=== PATIENT | female | born 1985 | race Caucasian/White ===

== ENCOUNTER → 2021-05-17 | Outpatient (CLI) | payer OTHER ==
[~2021-05-17] MED LIST: GASTROGRAFIN SOLUTION 30ML (Q9963) As Ordered ONE; ISOVUE-370 76% 100ML VIAL As Ordered ONE
== END ==
LOC: M RAD 12:46
PROVIDERS: ATTEND Student in an Organized Health Care Education/Training Program
DX: C43.4 Malignant melanoma of scalp and neck (principal)

== ENCOUNTER → 2021-07-03 | Outpatient (CLI) | payer BC | LOC: M PLARAD 12:52 | PROVIDERS: ATTEND Specialist | DX: C43.4 Malignant melanoma of scalp and neck (principal) | CPT/HCPCS: 78815; A9552 ==

== ENCOUNTER 2021-07-11 16:59 | Inpatient (IN) | payer BC ==
[~2021-07-11] VITALS: Ht 154.9 cm; Wt 50.0 kg
[2021-07-11 17:42] LABS: HEMATOCRIT 36.8 % (36.0-47.0); HEMOGLOBIN 12.4 g/dl (12.0-15.5); MEAN CORPUSCULAR HEMOGLOBIN 30.2 pg (27.0-33.0); MEAN CORPUSCULAR HGB CONC 33.7 g/dl (32.0-36.5); MEAN CORPUSCULAR VOLUME 89.5 fl (80.0-96.0); PLATELET COUNT, AUTOMATED 403 10^3/uL (150-450); RED BLOOD COUNT 4.11 10^6/uL (4.00-5.40); WHITE BLOOD COUNT 9.2 10^3/uL (4.0-10.0)
[2021-07-11 17:58] LABS: AMPHETAMINES LEVEL URINE NEGATIVE (NEGATIVE); BARBITURATES URINE NEGATIVE (NEGATIVE); BENZODIAZEPINES URINE NEGATIVE (NEGATIVE); CANNABINOIDS URINE NEGATIVE (NEGATIVE); COCAINE METABOLITE URINE NEGATIVE (NEGATIVE); METHADONE URINE NEGATIVE (NEGATIVE); OPIATES URINE NEGATIVE (NEGATIVE); PHENCYCLIDINE URINE NEGATIVE (NEGATIVE)
[2021-07-11 18:29] LABS: RSV AMPLIFICATION NEGATIVE (NEGATIVE)
[2021-07-11 18:31] LABS: HCG, SERUM QUALITATIVE NEGATIVE (NEGATIVE)
[2021-07-11 18:35] LABS: ACETAMINOPHEN LEVEL < 2.0 UG/ML (10.0-30.0); ALBUMIN 4.2 GM/DL (3.2-5.2); ALT/SGPT 21 U/L (12-78); BILIRUBIN,DIRECT < 0.1 MG/DL (0.0-0.2); BILIRUBIN,TOTAL 0.3 MG/DL (0.2-1.0); BLOOD UREA NITROGEN 6 MG/DL (7-18); CALCIUM LEVEL 9.6 MG/DL (8.5-10.1); CARBON DIOXIDE LEVEL 27 MEQ/L (21-32); CHLORIDE LEVEL 107 MEQ/L (98-107); CREATININE FOR GFR 0.93 MG/DL (0.55-1.30); ETHYL ALCOHOL (ETHANOL) < 0.003 % (0.000-0.010); GLOMERULAR FILTRATION RATE > 60.0 (>60); GLUCOSE, FASTING 102 MG/DL (70-100); POTASSIUM SERUM 3.9 MEQ/L (3.5-5.1); SALICYLATE LEVEL < 1.7 MG/DL (5.0-30.0); SODIUM LEVEL 139 MEQ/L (136-145); THYROID STIMULATING HORMONE 0.831 uIU/ML (0.358-3.740); TOTAL PROTEIN 7.9 GM/DL (6.4-8.2)
[2021-07-11] MEDS ORDERED: HOME MED LIST COMPLETE! XX SCH (23:05)
[2021-07-12] MEDS ORDERED: ACETAMINOPHEN 325 MG/10.15 ML UDC PO ONE (17:55)
[2021-07-13] MEDS ORDERED: ACETAMINOPHEN 325 MG/10.15 ML UDC PO ONE (12:20)
[2021-07-13] MEDS ORDERED: MAALOX 30 ML SUSP *UDC PO PRN (14:10)
[2021-07-13] MEDS ORDERED: traZODone 50 MG TAB PO PRN (14:10)
[2021-07-13] MEDS ORDERED: MOM 30ML SUSPENSION UDC PO PRN (14:10)
[2021-07-13] MEDS: ACETAMINOPHEN TAB 650MG DOSE (2X325MG) PO PRN (19:50)
[2021-07-14 07:04] VITALS: BP 101/57
[2021-07-14] MEDS: ESCITALOPRAM OXALATE 5MG TABLET (LEXAPRO) PO SCH (11:36)
[2021-07-14] MEDS: ACETAMINOPHEN TAB 650MG DOSE (2X325MG) PO PRN (11:36)
[2021-07-14] MEDS: LIDOCAINE 5% OINT 30GM TUBE TOP PRN (14:30)
[2021-07-14] MEDS ORDERED: ONDANSETRON 4 MG ORAL DISINTEGRATING TAB PO PRN (14:45)
[2021-07-14 18:47] VITALS: BP 126/82
[2021-07-14] MEDS: DOXYCYCLINE HYCLATE 100MG TABLET PO SCH (20:35)
[2021-07-15 06:42] VITALS: BP 102/56
[2021-07-15] MEDS: ACETAMINOPHEN TAB 650MG DOSE (2X325MG) PO PRN ×2 (08:16→21:30)
[2021-07-15] MEDS: ESCITALOPRAM OXALATE 5MG TABLET (LEXAPRO) PO SCH (08:16)
[2021-07-15] MEDS: DOXYCYCLINE HYCLATE 100MG TABLET PO SCH ×2 (08:16→20:38)
[2021-07-15] MEDS: LIDOCAINE 5% OINT 30GM TUBE TOP PRN (11:37)
[2021-07-15 18:48] VITALS: BP 130/82
[2021-07-16 06:34] VITALS: BP 109/53
[2021-07-16] MEDS: ESCITALOPRAM OXALATE 10 MG TAB (LEXAPRO) PO SCH (08:55)
[2021-07-16] MEDS: DOXYCYCLINE HYCLATE 100MG TABLET PO SCH ×2 (08:55→20:12)
[2021-07-16] MEDS: LIDOCAINE 5% OINT 30GM TUBE TOP PRN (12:07)
[2021-07-16 16:22] VITALS: BP 119/74
[2021-07-17 06:35] VITALS: BP 117/59
[2021-07-17] MEDS: ESCITALOPRAM OXALATE 10 MG TAB (LEXAPRO) PO SCH (08:15)
[2021-07-17] MEDS: DOXYCYCLINE HYCLATE 100MG TABLET PO SCH ×2 (08:15→19:37)
[2021-07-17] MEDS: ACETAMINOPHEN TAB 650MG DOSE (2X325MG) PO PRN ×2 (09:38→20:20)
[2021-07-17] MEDS: LIDOCAINE 5% OINT 30GM TUBE TOP PRN (14:13)
[2021-07-17 16:28] VITALS: BP 113/75
[2021-07-18 06:20] VITALS: BP 120/69
[2021-07-18] MEDS: ACETAMINOPHEN TAB 650MG DOSE (2X325MG) PO PRN (07:43)
[2021-07-18] MEDS: DOXYCYCLINE HYCLATE 100MG TABLET PO SCH (08:28)
[2021-07-18] MEDS: ESCITALOPRAM OXALATE 10 MG TAB (LEXAPRO) PO SCH (08:28)
[2021-07-18] MEDS ORDERED: LIDO5OIN19 TOP (09:37)
[2021-07-18] MEDS ORDERED: DOXY100T PO (09:37)
[2021-07-18] MEDS ORDERED: LEXA1TAB PO (09:37)
== END 2021-07-18 16:26 | disposition home or self-care (01) | DRG 755 ==
LOC: M ED 16:59 → M PSY 07-13 14:09 → M ED 07-13 14:42 → M PSY 07-13 15:23
PROVIDERS: ADMIT Student in an Organized Health Care Education/Training Program; ATTEND Psychiatry & Neurology Psychiatry
DX: F43.25 Adjustment disorder with mixed disturbance of emotions and conduct (principal); Z63.5 Disruption of family by separation and divorce; R45.851 Suicidal ideations; Z85.828 Personal history of other malignant neoplasm of skin; Z87.891 Personal history of nicotine dependence; M54.2 Cervicalgia; Z79.899 Other long term (current) drug therapy

== ENCOUNTER → 2022-06-06 | Outpatient (REF) | payer BC ==
[~2022-06-06] MED LIST changes: +DOXY100T PO; -GASTROGRAFIN SOLUTION 30ML (Q9963) As Ordered ONE; -ISOVUE-370 76% 100ML VIAL As Ordered ONE; +LEVE500T5; +LEXA1TAB PO; +LIDO5OIN19 TOP; +ONDA-83 PO; +PROC10TA5 PO
== END ==
LOC: M SFHCDERM 17:10
PROVIDERS: ATTEND Physician Assistant
DX: C43.59 Malignant melanoma of other part of trunk (principal)

== ENCOUNTER 2022-08-15 09:54 | Emergency (ER) | payer BC ==
[~2022-08-15] VITALS: Ht 154.9 cm; Wt 46.2 kg
[2022-08-15] MEDS ORDERED: LEXA1TAB (10:35)
[2022-08-15] MEDS ORDERED: ARIP1TAB4 (10:35)
[2022-08-15 11:01] LABS: BASO # 0.1 10^3/uL (0.0-0.2); BASO % 0.6 % (0.0-1.0); EOS # 0.1 10^3/uL (0.0-0.5); EOS % 1.4 % (0.0-3.0); HEMATOCRIT 32.2 % (36.0-47.0); HEMOGLOBIN 9.8 g/dl (12.0-15.5); LYMPH # 1.2 10^3/uL (1.5-5.0); LYMPH % 13.8 % (24.0-44.0); MEAN CORPUSCULAR HGB CONC 30.4 g/dl (32.0-36.5); MEAN CORPUSCULAR VOLUME 85.4 fl (80.0-96.0); MONO # 0.7 10^3/uL (0.0-0.8); NEUTROPHILS # 6.8 10^3/uL (1.5-8.5); PLATELET COUNT, AUTOMATED 406 10^3/uL (150-450); RED BLOOD COUNT 3.77 10^6/uL (4.00-5.40)
[2022-08-15] MEDS ORDERED: ISOVUE-370 76% 100ML VIAL As Ordered ONE (11:07)
[2022-08-15 11:22] LABS: LIPASE 46 U/L (12-53)
[2022-08-15 11:24] LABS: ALBUMIN 2.6 G/DL (3.2-5.2); ALKALINE PHOSPHATASE 137 U/L (46-116); ALT/SGPT 62 U/L (7.0-40); AST/SGOT 99 U/L (<34); BILIRUBIN,DIRECT 0.1 MG/DL (<0.4); BILIRUBIN,TOTAL 0.4 MG/DL (0.3-1.2); BLOOD UREA NITROGEN 8 MG/DL (9-23); CALCIUM LEVEL 8.8 MG/DL (8.5-10.1); CARBON DIOXIDE LEVEL 27 MMOL/L (20-31); CHLORIDE LEVEL 103 MMOL/L (98-107); CREATININE FOR GFR 0.75 MG/DL (0.55-1.30); GLOMERULAR FILTRATION RATE > 60.0 (>60); GLUCOSE, FASTING 85 MG/DL (60-100); POTASSIUM SERUM 4.6 MMOL/L (3.5-5.1); SODIUM LEVEL 134 MMOL/L (136-145); TOTAL PROTEIN 6.4 G/DL (5.7-8.2)
[2022-08-15] MEDS ORDERED: ACETAMINOPHEN TAB 650MG DOSE (2X325MG) PO ONE (12:45)
[2022-08-15 13:56] VITALS: BP 105/66
[2022-08-19] MEDS ORDERED: OXYC1TAB23 PO (13:57)
[2022-08-19] MEDS ORDERED: BRAF75CA PO (16:51)
[2022-08-19] MEDS ORDERED: MEKT15TA PO (16:54)
== END 2022-08-15 14:02 | disposition home or self-care (01) ==
LOC: M ED 09:54
DX: C43.9 Malignant melanoma of skin, unspecified (principal); R18.0 Malignant ascites; R91.8 Other nonspecific abnormal finding of lung field; Z79.899 Other long term (current) drug therapy; R56.9 Unspecified convulsions
CPT/HCPCS: 36415; 71260; 74177; 80047; 80048; 80076; 83690; 85025; 99284; Q9967

== ENCOUNTER → 2022-08-23 | Outpatient (CLI) | payer BC ==
[~2022-08-23] MED LIST changes: +ARIP1TAB4; +BRAF75CA PO; +LEXA1TAB; +LIDOCAINE 1% MDV 20ML VIAL As Ordered ONE; +MEKT15TA PO; +OXYC1TAB23 PO
[2022-08-23 12:15] VITALS: BP 99/62
== END ==
LOC: M IRPRO 09:54
PROVIDERS: ATTEND Specialist
DX: R18.8 Other ascites (principal)

== ENCOUNTER → 2022-08-29 | Outpatient (CLI) | payer BC ==
[~2022-08-29] MED LIST changes: -LIDOCAINE 1% MDV 20ML VIAL As Ordered ONE
[2022-08-29 10:22] VITALS: BP 104/74
== END ==
LOC: M IRPRO 09:39
PROVIDERS: ATTEND Specialist
DX: R18.8 Other ascites (principal)

== ENCOUNTER → 2022-10-01 | Outpatient (CLI) | payer BC ==
[~2022-10-01] VITALS: Ht 154.9 cm; Wt 43.3 kg
[~2022-10-01] MED LIST changes: -LEVE500T5; +LEVE500T5 PO; +LEXA1TAB2 PO
[2022-10-01 12:48] VITALS: BP 102/71
== END ==
LOC: M PAL 12:39
PROVIDERS: ATTEND Nurse Practitioner Adult Health
DX: C43.4 Malignant melanoma of scalp and neck (principal); C43.71 Malignant melanoma of right lower limb, including hip; C43.59 Malignant melanoma of other part of trunk; R63.4 Abnormal weight loss; E88.09 Other disorders of plasma-protein metabolism, not elsewhere classified; Z92.21 Personal history of antineoplastic chemotherapy; Z79.899 Other long term (current) drug therapy; G40.89 Other seizures

== ENCOUNTER 2022-11-01 22:14 | Inpatient (IN) | payer BC ==
[~2022-11-01] VITALS: Ht 154.9 cm; Wt 43.2 kg
[2022-11-01 23:15] LABS: HEMATOCRIT 38.2 % (36.0-47.0); MEAN CORPUSCULAR HEMOGLOBIN 26.1 pg (27.0-33.0); MEAN CORPUSCULAR HGB CONC 31.4 g/dl (32.0-36.5); MEAN CORPUSCULAR VOLUME 83.2 fl (80.0-96.0); PLATELET COUNT, AUTOMATED 333 10^3/uL (150-450); RED BLOOD COUNT 4.59 10^6/uL (4.00-5.40)
[2022-11-01 23:22] LABS: AMPHETAMINES LEVEL URINE NEGATIVE (NEGATIVE); BARBITURATES URINE NEGATIVE (NEGATIVE); COCAINE METABOLITE URINE NEGATIVE (NEGATIVE); METHADONE URINE NEGATIVE (NEGATIVE)
[2022-11-01 23:23] LABS: BENZODIAZEPINES URINE NEGATIVE (NEGATIVE); CANNABINOIDS URINE NEGATIVE (NEGATIVE); OPIATES URINE NEGATIVE (NEGATIVE); PHENCYCLIDINE URINE NEGATIVE (NEGATIVE)
[2022-11-01 23:25] LABS: ETHYL ALCOHOL (ETHANOL) 0.003 % (0.000-0.010)
[2022-11-01 23:26] LABS: ACETAMINOPHEN LEVEL < 2.0 UG/ML (10.0-20.0); ALBUMIN 3.5 G/DL (3.2-5.2); ALKALINE PHOSPHATASE 87 U/L (46-116); ALT/SGPT 19 U/L (7.0-40); AST/SGOT 15 U/L (<34); BILIRUBIN,DIRECT < 0.1 MG/DL (<0.4); BILIRUBIN,TOTAL 0.2 MG/DL (0.3-1.2); BLOOD UREA NITROGEN 13 MG/DL (9-23); CALCIUM LEVEL 9.9 MG/DL (8.5-10.1); CARBON DIOXIDE LEVEL 26 MMOL/L (20-31); CHLORIDE LEVEL 106 MMOL/L (98-107); CREATININE FOR GFR 0.83 MG/DL (0.55-1.30); GLOMERULAR FILTRATION RATE > 60.0 (>60); GLUCOSE, FASTING 106 MG/DL (60-100); POTASSIUM SERUM 4.2 MMOL/L (3.5-5.1); SALICYLATE LEVEL < 3.0 MG/DL (<30); SODIUM LEVEL 139 MMOL/L (136-145); TOTAL PROTEIN 7.5 G/DL (5.7-8.2)
[2022-11-01 23:29] LABS: THYROID STIMULATING HORMONE 3.534 uIU/ML (0.55-4.78)
[2022-11-02 00:02] LABS: HCG, SERUM QUALITATIVE NEGATIVE (NEGATIVE)
[2022-11-02] MEDS ORDERED: HOME MED LIST COMPLETE! XX SCH (03:10)
[2022-11-02] MEDS ORDERED: ACETAMINOPHEN TAB 650MG DOSE (2X325MG) PO PRN (05:30)
[2022-11-02] MEDS ORDERED: traZODone 50 MG TAB PO PRN (05:30)
[2022-11-02] MEDS ORDERED: MAALOX 30 ML SUSP *UDC PO PRN (05:30)
[2022-11-02] MEDS ORDERED: MOM 30ML SUSPENSION UDC PO PRN (05:30)
[2022-11-02] MEDS ORDERED: diphenhydrAMINE 25MG CAP PO PRN (05:30)
[2022-11-02] MEDS ORDERED: IBUPROFEN 400MG TAB PO PRN (05:30)
[2022-11-02 08:17] VITALS: BP 92/62; TEMP 98.6; O2SAT 100
[2022-11-02] MEDS: levETIRAcetam 250MG TABLET (KEPPRA) PO SCH ×3 (10:30→20:54)
[2022-11-02] MEDS: BRAFTOVI PO SCH ×2 (10:31→20:57)
[2022-11-02] MEDS: [UNRECOGNIZED DRUG - OTHER] PO SCH ×2 (10:33→20:57)
[2022-11-02] MEDS: FLUoxetine 10 MG CAP PO SCH (10:44)
[2022-11-02 18:00] VITALS: BP 111/66; TEMP 96.7; O2SAT 99
[2022-11-02] MEDS: MIRTAZAPINE 7.5MG PER 1/2 TABLET PO SCH (20:54)
[2022-11-03 06:20] VITALS: BP 86/50; TEMP 97.1; O2SAT 98
[2022-11-03 06:37] VITALS: BP 92/54
[2022-11-03 07:08] VITALS: BP 93/54
[2022-11-03 07:12] LABS: CHOLESTEROL RISK RATIO 3.7 (<5); HDL CHOLESTEROL 53.1 MG/DL (>40); LDL CHOLESTEROL 132.3 MG/DL (<100); NON-HDL-C 143.9 MG/DL
[2022-11-03] MEDS: levETIRAcetam 250MG TABLET (KEPPRA) PO SCH ×3 (08:51→20:16)
[2022-11-03] MEDS: FLUoxetine 10 MG CAP PO SCH (08:51)
[2022-11-03] MEDS: [UNRECOGNIZED DRUG - OTHER] PO SCH ×2 (08:52→20:17)
[2022-11-03] MEDS: BRAFTOVI PO SCH ×2 (08:52→20:17)
[2022-11-03 18:22] VITALS: BP 114/62; TEMP 96.7
[2022-11-03] MEDS: MIRTAZAPINE 7.5MG PER 1/2 TABLET PO SCH (20:16)
[2022-11-04 06:04] VITALS: BP 104/52; TEMP 98.1; O2SAT 98
[2022-11-04] MEDS: levETIRAcetam 250MG TABLET (KEPPRA) PO SCH ×2 (08:53→15:50)
[2022-11-04] MEDS: FLUoxetine 10 MG CAP PO SCH (08:53)
[2022-11-04] MEDS: BRAFTOVI PO SCH (08:54)
[2022-11-04] MEDS: [UNRECOGNIZED DRUG - OTHER] PO SCH (08:54)
[2022-11-04] MEDS ORDERED: MIRT-10 PO ×2 (09:18→10:54)
[2022-11-04] MEDS ORDERED: FLUO10CA18 PO ×2 (09:18→10:54)
== END 2022-11-04 17:03 | disposition home or self-care (01) | DRG 753 ==
LOC: M ED 22:14 → M ED INP 11-02 05:26 → M PSY 11-02 08:28
PROVIDERS: ADMIT Student in an Organized Health Care Education/Training Program; ATTEND Student in an Organized Health Care Education/Training Program
DX: F32.89 Other specified depressive episodes (principal); F43.20 Adjustment disorder, unspecified; C43.4 Malignant melanoma of scalp and neck; R18.0 Malignant ascites; G40.A09 Absence epileptic syndrome, not intractable, without status epilepticus; Z79.899 Other long term (current) drug therapy; Z79.69 Long term (current) use of other immunomodulators and immunosuppressants; I95.9 Hypotension, unspecified; Z68.1 Body mass index [BMI] 19.9 or less, adult

== ENCOUNTER → 2022-11-07 | Outpatient (CLI) | payer BC ==
[~2022-11-07] MED LIST changes: +FLUO10CA18 PO; +MIRT-10 PO
== END ==
LOC: M PAL 08:02
PROVIDERS: ATTEND Nurse Practitioner Adult Health
DX: C43.4 Malignant melanoma of scalp and neck (principal); C43.71 Malignant melanoma of right lower limb, including hip; C43.59 Malignant melanoma of other part of trunk; Z92.21 Personal history of antineoplastic chemotherapy; Z79.899 Other long term (current) drug therapy; Z51.5 Encounter for palliative care

== ENCOUNTER 2022-12-27 20:25 | Emergency (ER) | payer BC ==
[~2022-12-27] VITALS: Ht 154.9 cm; Wt 45.5 kg
[~2022-12-27 20:25] MED LIST changes: -ELIQ5TAB PO; -GASTROGRAFIN SOLUTION 30ML As Ordered ONE; -ISOVUE-370 76% 100ML VIAL As Ordered ONE
[2022-12-27 20:26] VITALS: BP 118/66; TEMP 98.8; O2SAT 100
[2022-12-27 22:32] LABS: BASO % 0.3 % (0.0-1.0); EOS # 0.3 10^3/uL (0.0-0.5); EOS % 8.7 % (0.0-3.0); HEMOGLOBIN 11.4 g/dl (12.0-15.5); LYMPH # 0.7 10^3/uL (1.5-5.0); LYMPH % 23.1 % (24.0-44.0); MEAN CORPUSCULAR HEMOGLOBIN 26.6 pg (27.0-33.0); MEAN CORPUSCULAR HGB CONC 31.7 g/dl (32.0-36.5); MEAN CORPUSCULAR VOLUME 84.1 fl (80.0-96.0); MONO # 0.4 10^3/uL (0.0-0.8); MONO % 13.1 % (2.0-8.0); NEUTROPHILS # 1.8 10^3/uL (1.5-8.5); NEUTROPHILS % 54.5 % (36.0-66.0); PLATELET COUNT, AUTOMATED 170 10^3/uL (150-450); RED BLOOD COUNT 4.28 10^6/uL (4.00-5.40); WHITE BLOOD COUNT 3.2 10^3/uL (4.0-10.0)
[2022-12-27] MEDS ORDERED: APIXABAN 5 MG TAB (ELIQUIS) PO ONE (22:35)
[2022-12-27] MEDS ORDERED: ELIQ5TAB PO ×2 (22:38→23:27)
[2022-12-27 22:52] LABS: ALBUMIN 3.3 G/DL (3.2-5.2); ALKALINE PHOSPHATASE 158 U/L (46-116); ALT/SGPT 48 U/L (7.0-40); AST/SGOT 53 U/L (<34); BILIRUBIN,TOTAL 0.2 MG/DL (0.3-1.2); BLOOD UREA NITROGEN 9 MG/DL (9-23); CALCIUM LEVEL 8.8 MG/DL (8.5-10.1); CARBON DIOXIDE LEVEL 26 MMOL/L (20-31); CHLORIDE LEVEL 104 MMOL/L (98-107); CREATININE FOR GFR 0.93 MG/DL (0.55-1.30); GLOMERULAR FILTRATION RATE > 60.0 (>60); GLUCOSE, FASTING 92 MG/DL (60-100); MAGNESIUM LEVEL 1.7 MG/DL (1.8-2.4); POTASSIUM SERUM 4.2 MMOL/L (3.5-5.1); SODIUM LEVEL 135 MMOL/L (136-145); TOTAL PROTEIN 7.3 G/DL (5.7-8.2)
[2022-12-27 22:53] LABS: INR 1.04; PARTIAL THROMBOPLASTIN TIME 31.5 SECONDS (24.8-34.2); PROTHROMBIN TIME 13.3 SECONDS (12.5-14.5)
== END 2022-12-27 23:51 | disposition home or self-care (01) ==
LOC: M ED 20:25
DX: I26.99 Other pulmonary embolism without acute cor pulmonale (principal); C43.9 Malignant melanoma of skin, unspecified; Z92.21 Personal history of antineoplastic chemotherapy; R56.9 Unspecified convulsions; F32.A Depression, unspecified

== ENCOUNTER → 2022-12-27 | Outpatient (CLI) | payer BC ==
[~2022-12-27] MED LIST changes: +ELIQ5TAB PO; +GASTROGRAFIN SOLUTION 30ML As Ordered ONE; +ISOVUE-370 76% 100ML VIAL As Ordered ONE
== END ==
LOC: M RAD 15:20
PROVIDERS: ATTEND Nurse Practitioner
DX: C43.9 Malignant melanoma of skin, unspecified (principal)
CPT/HCPCS: 71260; 74177; Q9963; Q9967

== ENCOUNTER → 2023-01-14 | Outpatient (CLI) | payer BC ==
[~2023-01-14] VITALS: Ht 154.9 cm; Wt 45.8 kg
[~2023-01-14] MED LIST changes: +ELIQ5TAB PO; +GABA-1171 PO; +MIRA3350; +ONDA8TAB8; +PEPC1TAB5; +XARE20TA PO
[2023-01-14 13:50] VITALS: BP 122/77; O2SAT 100
== END ==
LOC: M PAL 08:07
PROVIDERS: ATTEND Nurse Practitioner Adult Health
DX: C43.4 Malignant melanoma of scalp and neck (principal); C43.71 Malignant melanoma of right lower limb, including hip; C43.59 Malignant melanoma of other part of trunk; E88.09 Other disorders of plasma-protein metabolism, not elsewhere classified; G25.81 Restless legs syndrome; I26.99 Other pulmonary embolism without acute cor pulmonale; R53.83 Other fatigue; R63.4 Abnormal weight loss; F41.9 Anxiety disorder, unspecified; F32.A Depression, unspecified; Z51.5 Encounter for palliative care; Z92.21 Personal history of antineoplastic chemotherapy; Z79.01 Long term (current) use of anticoagulants; Z79.899 Other long term (current) drug therapy; Z88.8 Allergy status to other drugs, medicaments and biological substances

== ENCOUNTER → 2023-01-21 | Outpatient (CLI) | payer BC | LOC: M ONCM 08:32 | PROVIDERS: ATTEND Dietitian, Registered | DX: C43.4 Malignant melanoma of scalp and neck (principal); C43.71 Malignant melanoma of right lower limb, including hip; Z68.1 Body mass index [BMI] 19.9 or less, adult; Z71.3 Dietary counseling and surveillance ==

== ENCOUNTER → 2023-02-25 | Outpatient (CLI) | payer BC ==
[~2023-02-25] VITALS: Ht 152.4 cm; Wt 48.9 kg
[2023-02-25 13:41] VITALS: BP 127/70; O2SAT 100
== END ==
LOC: M PAL 13:14
PROVIDERS: ATTEND Nurse Practitioner Adult Health
DX: C43.4 Malignant melanoma of scalp and neck (principal); C43.71 Malignant melanoma of right lower limb, including hip; C43.59 Malignant melanoma of other part of trunk; E88.09 Other disorders of plasma-protein metabolism, not elsewhere classified; G25.81 Restless legs syndrome; I26.99 Other pulmonary embolism without acute cor pulmonale; Z51.5 Encounter for palliative care; Z92.21 Personal history of antineoplastic chemotherapy; Z79.01 Long term (current) use of anticoagulants; Z79.899 Other long term (current) drug therapy; Z88.8 Allergy status to other drugs, medicaments and biological substances

== ENCOUNTER → 2023-04-08 | Outpatient (CLI) | payer BC | LOC: M PAL 08:05 | PROVIDERS: ATTEND Nurse Practitioner Family | DX: C43.4 Malignant melanoma of scalp and neck (principal); C43.71 Malignant melanoma of right lower limb, including hip; Z51.5 Encounter for palliative care; G25.81 Restless legs syndrome; Z79.01 Long term (current) use of anticoagulants; Z79.899 Other long term (current) drug therapy; Z88.8 Allergy status to other drugs, medicaments and biological substances; Z86.711 Personal history of pulmonary embolism ==

== ENCOUNTER → 2023-04-16 | Outpatient (CLI) | payer BC ==
[~2023-04-16] MED LIST changes: +GASTROGRAFIN SOLUTION 30ML As Ordered ONE; +ISOVUE-370 76% 100ML VIAL As Ordered ONE
== END ==
LOC: M RAD 15:08
PROVIDERS: ATTEND Nurse Practitioner
DX: C43.9 Malignant melanoma of skin, unspecified (principal)
CPT/HCPCS: 71260; 74177; Q9963; Q9967

== ENCOUNTER → 2023-05-28 | Outpatient (CLI) | payer BC ==
[~2023-05-28] MED LIST changes: -GASTROGRAFIN SOLUTION 30ML As Ordered ONE; +HYDR-3713 PO; -ISOVUE-370 76% 100ML VIAL As Ordered ONE; +LEVE750T5 PO; +LIDO30CR18 TOP
== END ==
LOC: M ONCR 13:08
PROVIDERS: ATTEND General Practice
DX: C79.31 Secondary malignant neoplasm of brain (principal); R56.9 Unspecified convulsions; C43.4 Malignant melanoma of scalp and neck; C43.71 Malignant melanoma of right lower limb, including hip; C43.59 Malignant melanoma of other part of trunk; Z71.2 Person consulting for explanation of examination or test findings; Z88.8 Allergy status to other drugs, medicaments and biological substances; Z79.01 Long term (current) use of anticoagulants; Z79.899 Other long term (current) drug therapy; Z92.29 Personal history of other drug therapy

== ENCOUNTER → 2023-05-28 | Outpatient (CLI) | payer BC ==
[~2023-05-28] MED LIST changes: +PROHANCE 279.3MG/ML 5ML VIAL As Ordered ONE
== END ==
LOC: M RAD 08:51
PROVIDERS: ATTEND Nurse Practitioner
DX: C43.9 Malignant melanoma of skin, unspecified (principal)
CPT/HCPCS: 70553; A9576

== ENCOUNTER 2023-06-02 09:39 | Inpatient (IN) | payer BC ==
[~2023-06-02] VITALS: Ht 154.9 cm; Wt 51.3 kg
[~2023-06-02 09:39] MED LIST changes: -PROHANCE 279.3MG/ML 5ML VIAL As Ordered ONE
[2023-06-02] MEDS ORDERED: GABAPENTIN 100 MG CAP PO ONE (10:25)
[2023-06-02] MEDS ORDERED: NORCO, ANEXSIA 5/325MG TABLET (HYDROcodone/ACETAMINOPHEN) PO ONE (10:25)
[2023-06-02 10:41] LABS: BASO % 0.4 % (0.0-1.0); EOS % 0.4 % (0.0-3.0); HEMATOCRIT 31.8 % (36.0-47.0); HEMOGLOBIN 9.6 g/dl (12.0-15.5); LYMPH # 0.8 10^3/uL (1.5-5.0); LYMPH % 7.4 % (24.0-44.0); MEAN CORPUSCULAR HEMOGLOBIN 23.4 pg (27.0-33.0); MEAN CORPUSCULAR HGB CONC 30.2 g/dl (32.0-36.5); MEAN CORPUSCULAR VOLUME 77.4 fl (80.0-96.0); MONO # 1.1 10^3/uL (0.0-0.8); MONO % 10.5 % (2.0-8.0); NEUTROPHILS # 8.4 10^3/uL (1.5-8.5); NEUTROPHILS % 80.9 % (36.0-66.0); PLATELET COUNT, AUTOMATED 389 10^3/uL (150-450); RED BLOOD COUNT 4.11 10^6/uL (4.00-5.40); WHITE BLOOD COUNT 10.3 10^3/uL (4.0-10.0)
[2023-06-02] MEDS ORDERED: ACET-907 PO (10:54)
[2023-06-02 10:56] LABS: INR 1.47; PROTHROMBIN TIME 17.4 SECONDS (12.5-14.5)
[2023-06-02] MEDS ORDERED: ISOVUE-370 76% 100ML VIAL As Ordered ONE (10:56)
[2023-06-02 10:57] LABS: PARTIAL THROMBOPLASTIN TIME 40.2 SECONDS (24.8-34.2)
[2023-06-02 11:05] LABS: LIPASE 25 U/L (12-53)
[2023-06-02 11:07] LABS: ALBUMIN 2.3 G/DL (3.2-5.2); ALKALINE PHOSPHATASE 139 U/L (46-116); ALT/SGPT 45 U/L (7.0-40); AST/SGOT 74 U/L (<34); BILIRUBIN,DIRECT < 0.1 MG/DL (<0.4); BILIRUBIN,TOTAL 0.2 MG/DL (0.3-1.2); TOTAL PROTEIN 6.3 G/DL (5.7-8.2)
[2023-06-02] MEDS ORDERED: ONDANSETRON 4MG 2ML VIAL IV ONE (15:00)
[2023-06-02] MEDS ORDERED: MORPHINE 2 MG/ML 1ML VIAL IV ONE (15:00)
[2023-06-02] MEDS ORDERED: MED REC IN PROGRESS XX SCH (15:45)
[2023-06-02] MEDS ORDERED: PROC10TA5 PO (17:25)
[2023-06-02] MEDS ORDERED: KETOROLAC 30 MG/ML 1ML VIAL IV PRN (17:25)
[2023-06-02] MEDS ORDERED: MORPHINE 2 MG/ML 1ML VIAL IV PRN (17:25)
[2023-06-02] MEDS ORDERED: NS 1,000 ML IV SCH (17:30)
[2023-06-02] MEDS ORDERED: HOME MED LIST COMPLETE! XX SCH (17:30)
[2023-06-02] MEDS ORDERED: ONDANSETRON 4MG 2ML VIAL IV PRN (17:30)
[2023-06-02] MEDS ORDERED: XARE20TA PO (17:31)
[2023-06-02] MEDS ORDERED: ACETAMINOPHEN 500 MG TAB PO SCH (18:00)
[2023-06-02] MEDS ORDERED: cefTRIAXone SOD 1 GM in D5W MINI-BAG PLUS 50 ML IV SCH (18:00)
[2023-06-02 19:00] VITALS: BP 112/79; TEMP 98.4; O2SAT 99
[2023-06-02 19:39] VITALS: BP 112/79; TEMP 98.2; O2SAT 97
[2023-06-02] MEDS: GABAPENTIN 100 MG CAP PO SCH (20:09)
[2023-06-02] MEDS: KETOROLAC 30 MG/ML 1ML VIAL IV SCH (20:09)
[2023-06-02] MEDS: LIDOCAINE 5% (LIDODERM) PATCH TD SCH (20:10)
[2023-06-02] MEDS: MIRTAZAPINE 7.5MG PER 1/2 TABLET PO SCH (21:23)
[2023-06-03] MEDS: KETOROLAC 30 MG/ML 1ML VIAL IV SCH ×2 (00:45→05:26)
[2023-06-03 05:41] VITALS: BP 109/76; TEMP 98.2; O2SAT 96
[2023-06-03] MEDS ORDERED: ACETAMINOPHEN 500 MG TAB PO SCH (06:00)
[2023-06-03 07:23] LABS: HEMATOCRIT 29.3 % (36.0-47.0); HEMOGLOBIN 8.9 g/dl (12.0-15.5); MEAN CORPUSCULAR HEMOGLOBIN 23.5 pg (27.0-33.0); MEAN CORPUSCULAR HGB CONC 30.4 g/dl (32.0-36.5); MEAN CORPUSCULAR VOLUME 77.3 fl (80.0-96.0); PLATELET COUNT, AUTOMATED 363 10^3/uL (150-450); RED BLOOD COUNT 3.79 10^6/uL (4.00-5.40); WHITE BLOOD COUNT 8.3 10^3/uL (4.0-10.0)
[2023-06-03 07:41] LABS: ALBUMIN 1.9 G/DL (3.2-5.2); ALKALINE PHOSPHATASE 122 U/L (46-116); ALT/SGPT 33 U/L (7.0-40); AST/SGOT 49 U/L (<34); BILIRUBIN,TOTAL 0.2 MG/DL (0.3-1.2); BLOOD UREA NITROGEN 11 MG/DL (9-23); CALCIUM LEVEL 7.7 MG/DL (8.5-10.1); CARBON DIOXIDE LEVEL 23 MMOL/L (20-31); CHLORIDE LEVEL 111 MMOL/L (98-107); CREATININE FOR GFR 0.91 MG/DL (0.55-1.30); GLOMERULAR FILTRATION RATE > 60.0 (>60); GLUCOSE, FASTING 86 MG/DL (60-100); POTASSIUM SERUM 4.4 MMOL/L (3.5-5.1); SODIUM LEVEL 139 MMOL/L (136-145); TOTAL PROTEIN 5.2 G/DL (5.7-8.2)
[2023-06-03] MEDS: GABAPENTIN 100 MG CAP PO SCH ×3 (08:18→22:16)
[2023-06-03] MEDS: DICLOFENAC EPOLAMINE 1.3% PATCH TOP SCH ×2 (08:19→22:18)
[2023-06-03] MEDS: levETIRAcetam 250MG TABLET (KEPPRA) PO SCH ×2 (10:57→22:17)
[2023-06-03] MEDS ORDERED: PERCOCET 5MG/325MG TAB PO PRN (11:00)
[2023-06-03] MEDS: ACETAMINOPHEN TAB 650MG DOSE (2X325MG) PO SCH ×2 (12:19→17:38)
[2023-06-03] MEDS ORDERED: DOCUSATE SODIUM 100MG CAPSULE PO PRN (14:00)
[2023-06-03] MEDS: MIRALAX *UNIT DOSE* 17GM PACKET PO SCH (15:13)
[2023-06-03] MEDS: MORPHINE 4 MG/ML 1ML VIAL IV PRN ×2 (15:14→19:32)
[2023-06-03 15:15] VITALS: BP 107/74; TEMP 97.7; O2SAT 97
[2023-06-03] MEDS ORDERED: MORPHINE 15 MG SA TAB PO PRN (16:00)
[2023-06-03] MEDS ORDERED: GLYCOPYRROLATE INJ 0.2 MG/ML 2 ML VIAL IV PRN (16:00)
[2023-06-03] MEDS: RIVAROXABAN 20MG TAB (XARELTO) PO SCH (17:37)
[2023-06-03 20:33] VITALS: BP 107/72; TEMP 98.2; O2SAT 98
[2023-06-03] MEDS: DOCUSATE SODIUM 100MG CAPSULE PO SCH (22:16)
[2023-06-03] MEDS: MORPHINE 15 MG SA TAB PO SCH (22:17)
[2023-06-03] MEDS: MIRTAZAPINE 7.5MG PER 1/2 TABLET PO SCH (22:17)
[2023-06-03] MEDS: LIDOCAINE 5% (LIDODERM) PATCH TD SCH (22:19)
[2023-06-04] MEDS: ACETAMINOPHEN TAB 650MG DOSE (2X325MG) PO SCH ×4 (00:38→17:31)
[2023-06-04] MEDS: MORPHINE 4 MG/ML 1ML VIAL IV PRN (05:58)
[2023-06-04 06:00] VITALS: BP 99/66; TEMP 96.1; O2SAT 94
[2023-06-04 07:13] LABS: HEMOGLOBIN 9.3 g/dl (12.0-15.5); MEAN CORPUSCULAR HEMOGLOBIN 23.4 pg (27.0-33.0); MEAN CORPUSCULAR VOLUME 78.1 fl (80.0-96.0); PLATELET COUNT, AUTOMATED 399 10^3/uL (150-450); RED BLOOD COUNT 3.97 10^6/uL (4.00-5.40); WHITE BLOOD COUNT 6.4 10^3/uL (4.0-10.0)
[2023-06-04 07:42] LABS: ALBUMIN 1.9 G/DL (3.2-5.2); ALKALINE PHOSPHATASE 183 U/L (46-116); ALT/SGPT 30 U/L (7.0-40); AST/SGOT 53 U/L (<34); BILIRUBIN,TOTAL < 0.2 MG/DL (0.3-1.2); BLOOD UREA NITROGEN 11 MG/DL (9-23); CALCIUM LEVEL 7.7 MG/DL (8.5-10.1); CARBON DIOXIDE LEVEL 23 MMOL/L (20-31); CHLORIDE LEVEL 113 MMOL/L (98-107); CREATININE FOR GFR 0.83 MG/DL (0.55-1.30); GLOMERULAR FILTRATION RATE > 60.0 (>60); GLUCOSE, FASTING 89 MG/DL (60-100); POTASSIUM SERUM 4.5 MMOL/L (3.5-5.1); SODIUM LEVEL 139 MMOL/L (136-145); TOTAL PROTEIN 5.3 G/DL (5.7-8.2)
[2023-06-04] MEDS: DOCUSATE SODIUM 100MG CAPSULE PO SCH (08:30)
[2023-06-04] MEDS: levETIRAcetam 250MG TABLET (KEPPRA) PO SCH ×2 (08:30→20:26)
[2023-06-04] MEDS: MORPHINE 15 MG SA TAB PO SCH ×2 (08:31→20:27)
[2023-06-04] MEDS: GABAPENTIN 100 MG CAP PO SCH ×3 (08:31→20:28)
[2023-06-04] MEDS: MIRALAX *UNIT DOSE* 17GM PACKET PO SCH (08:31)
[2023-06-04] MEDS: DICLOFENAC EPOLAMINE 1.3% PATCH TOP SCH ×2 (08:32→20:28)
[2023-06-04] MEDS: LACOSAMIDE 50 MG TAB (VIMPAT) PO SCH ×2 (12:16→20:27)
[2023-06-04 14:00] VITALS: BP 101/81; TEMP 98.1; O2SAT 92
[2023-06-04] MEDS ORDERED: BISACODYL 10MG SUPP PR SCH (14:45)
[2023-06-04] MEDS ORDERED: MORPHINE 30 MG TAB **MSIR PO PRN (15:45)
[2023-06-04] MEDS ORDERED: PILL CUTTER 1 EACH XX PRN (15:50)
[2023-06-04] MEDS: RIVAROXABAN 20MG TAB (XARELTO) PO SCH (17:31)
[2023-06-04] MEDS: LIDOCAINE 5% (LIDODERM) PATCH TD SCH (20:26)
[2023-06-04] MEDS: SENOKOT S TAB PO SCH (20:27)
[2023-06-04] MEDS: MIRTAZAPINE 7.5MG PER 1/2 TABLET PO SCH (20:28)
[2023-06-04 21:11] VITALS: BP 102/79; TEMP 98.4; O2SAT 89
[2023-06-05] MEDS: ACETAMINOPHEN TAB 650MG DOSE (2X325MG) PO SCH ×3 (00:11→12:00)
[2023-06-05 06:41] VITALS: BP 102/78; TEMP 97.9; O2SAT 90
[2023-06-05] MEDS ORDERED: BISACODYL 10MG SUPP PR SCH (08:00)
[2023-06-05] MEDS: DICLOFENAC EPOLAMINE 1.3% PATCH TOP SCH (09:00)
[2023-06-05] MEDS: GABAPENTIN 100 MG CAP PO SCH ×2 (09:49→16:20)
[2023-06-05] MEDS: LACOSAMIDE 50 MG TAB (VIMPAT) PO SCH (09:49)
[2023-06-05] MEDS: SENOKOT S TAB PO SCH (09:49)
[2023-06-05] MEDS: MIRALAX *UNIT DOSE* 17GM PACKET PO SCH (09:50)
[2023-06-05] MEDS: levETIRAcetam 250MG TABLET (KEPPRA) PO SCH (09:50)
[2023-06-05] MEDS: MORPHINE 15 MG SA TAB PO SCH (09:52)
[2023-06-05] MEDS ORDERED: MORP15TASA PO ×3 (10:53→11:46)
[2023-06-05] MEDS ORDERED: SENN-52 PO (10:53)
[2023-06-05] MEDS ORDERED: ACET1TAB55 PO ×2 (10:53→11:44)
[2023-06-05] MEDS ORDERED: BISA10SU PR (10:53)
[2023-06-05] MEDS ORDERED: MSIR30TA PO (10:53)
[2023-06-05] MEDS ORDERED: GABA-1171 PO (10:53)
[2023-06-05] MEDS ORDERED: MIRA1POW3 PO ×2 (10:53→11:48)
[2023-06-05] MEDS ORDERED: VIMP50TA3 PO ×3 (10:53→11:46)
[2023-06-05] MEDS ORDERED: MORP15TA2 PO ×3 (11:44→16:06)
[2023-06-05] MEDS ORDERED: LEVE10003 PO (11:44)
[2023-06-05 13:30] VITALS: BP 103/77; TEMP 98.6; O2SAT 98
[2023-06-05] MEDS ORDERED: MORP-69 PO (16:06)
== END 2023-06-05 17:45 | disposition home or self-care (01) | DRG 861 ==
LOC: EDBD 09:39 → M ED 10:00 → OBSVTOIN 17:10 → INTOOBSV 17:10 → M ED INP 17:10 → M MS5PR 18:45
PROVIDERS: ADMIT Student in an Organized Health Care Education/Training Program; ATTEND Internal Medicine
DX: G89.3 Neoplasm related pain (acute) (chronic) (principal); R18.0 Malignant ascites; C79.31 Secondary malignant neoplasm of brain; C78.02 Secondary malignant neoplasm of left lung; C43.4 Malignant melanoma of scalp and neck; G40.209 Localization-related (focal) (partial) symptomatic epilepsy and epileptic syndromes with complex partial seizures, not intractable, without status epilepticus; C78.7 Secondary malignant neoplasm of liver and intrahepatic bile duct; C78.6 Secondary malignant neoplasm of retroperitoneum and peritoneum; F32.A Depression, unspecified; K59.00 Constipation, unspecified; Z86.711 Personal history of pulmonary embolism; Z79.01 Long term (current) use of anticoagulants; Z79.899 Other long term (current) drug therapy; Z88.8 Allergy status to other drugs, medicaments and biological substances

== ENCOUNTER 2023-06-03 14:39 | Outpatient (RCR) | payer BC ==
[~2023-06-03 14:39] MED LIST changes: +ACET-907 PO
[2023-06-05] MEDS ORDERED: BISA10SU PR (10:53)
[2023-06-05] MEDS ORDERED: MORP15TASA PO ×2 (10:53→11:46)
[2023-06-05] MEDS ORDERED: SENN-52 PO (10:53)
[2023-06-05] MEDS ORDERED: MSIR30TA PO (10:53)
[2023-06-05] MEDS ORDERED: ACET1TAB55 PO ×2 (10:53→11:44)
[2023-06-05] MEDS ORDERED: MIRA1POW3 PO ×2 (10:53→11:48)
[2023-06-05] MEDS ORDERED: GABA-1171 PO (10:53)
[2023-06-05] MEDS ORDERED: VIMP50TA3 PO ×2 (10:53→11:46)
[2023-06-05] MEDS ORDERED: LEVE10003 PO (11:44)
[2023-06-05] MEDS ORDERED: MORP15TA2 PO ×3 (11:44→16:06)
[2023-06-05] MEDS ORDERED: MORP-69 PO (16:06)
== END 2023-06-04 ==
LOC: M ONCR 14:39
PROVIDERS: ATTEND General Practice
DX: C79.31 Secondary malignant neoplasm of brain (principal)

== ENCOUNTER 2023-06-09 12:37 | Inpatient (IN) | payer BC ==
[~2023-06-09] VITALS: Ht 154.9 cm; Wt 52.3 kg
[~2023-06-09 12:37] MED LIST changes: +ACET1TAB55 PO; +BISA10SU PR; +LEVE10003 PO; +MIRA1POW3 PO; +MORP-69 PO; +MORP15TA2 PO; +MORP15TASA PO; +MSIR30TA PO; +SENN-52 PO; +VIMP50TA3 PO
[2023-06-09] MEDS ORDERED: ONDA-83 PO (13:05)
[2023-06-09 14:29] LABS: BASO # 0.1 10^3/uL (0.0-0.2); BASO % 0.5 % (0.0-1.0); EOS # 0.1 10^3/uL (0.0-0.5); EOS % 0.6 % (0.0-3.0); HEMATOCRIT 34.1 % (36.0-47.0); HEMOGLOBIN 10.4 g/dl (12.0-15.5); LYMPH # 1.2 10^3/uL (1.5-5.0); LYMPH % 8.9 % (24.0-44.0); MEAN CORPUSCULAR HEMOGLOBIN 23.3 pg (27.0-33.0); MEAN CORPUSCULAR HGB CONC 30.5 g/dl (32.0-36.5); MEAN CORPUSCULAR VOLUME 76.5 fl (80.0-96.0); MONO # 0.6 10^3/uL (0.0-0.8); MONO % 4.8 % (2.0-8.0); NEUTROPHILS # 10.4 10^3/uL (1.5-8.5); NEUTROPHILS % 78.7 % (36.0-66.0); PLATELET COUNT, AUTOMATED 429 10^3/uL (150-450); RED BLOOD COUNT 4.46 10^6/uL (4.00-5.40); WHITE BLOOD COUNT 13.2 10^3/uL (4.0-10.0)
[2023-06-09] MEDS ORDERED: ISOVUE-370 76% 100ML VIAL As Ordered ONE (14:29)
[2023-06-09 14:38] LABS: INR 1.23; PARTIAL THROMBOPLASTIN TIME 39.6 SECONDS (24.8-34.2); PROTHROMBIN TIME 15.1 SECONDS (12.5-14.5)
[2023-06-09] MEDS: MORPHINE 2 MG/ML 1ML VIAL IV PRN (14:44)
[2023-06-09 14:49] LABS: LIPASE 28 U/L (12-53)
[2023-06-09 14:50] LABS: AMYLASE 22 U/L (30-118)
[2023-06-09 14:51] LABS: ALKALINE PHOSPHATASE 202 U/L (46-116); ALT/SGPT 15 U/L (7.0-40); AST/SGOT 36 U/L (<34); BILIRUBIN,DIRECT < 0.1 MG/DL (<0.4); BILIRUBIN,TOTAL 0.2 MG/DL (0.3-1.2); BLOOD UREA NITROGEN 12 MG/DL (9-23); CARBON DIOXIDE LEVEL 22 MMOL/L (20-31); CHLORIDE LEVEL 106 MMOL/L (98-107); CREATININE FOR GFR 0.79 MG/DL (0.55-1.30); GLOMERULAR FILTRATION RATE > 60.0 (>60); GLUCOSE, FASTING 97 MG/DL (60-100); SODIUM LEVEL 135 MMOL/L (136-145); TOTAL PROTEIN 6.1 G/DL (5.7-8.2)
[2023-06-09 14:54] LABS: HCG, SERUM QUALITATIVE NEGATIVE (NEGATIVE)
[2023-06-09 16:55] LABS: RSV AMPLIFICATION NEGATIVE (NEGATIVE)
[2023-06-09] MEDS ORDERED: ACET1TAB55 PO (16:58)
[2023-06-09] MEDS ORDERED: GABA-1171 PO (16:59)
[2023-06-09] MEDS ORDERED: KEPP10002 PO (17:02)
[2023-06-09] MEDS ORDERED: VIMP50TA3 PO (17:03)
[2023-06-09] MEDS ORDERED: MORPHINE 30 MG TAB **MSIR PO PRN (17:05)
[2023-06-09] MEDS ORDERED: SENOKOT S TAB PO PRN (17:05)
[2023-06-09] MEDS ORDERED: MOM 30ML SUSPENSION UDC PO PRN (17:05)
[2023-06-09] MEDS ORDERED: MIRALAX *UNIT DOSE* 17GM PACKET PO PRN (17:05)
[2023-06-09] MEDS ORDERED: ONDANSETRON 4MG 2ML VIAL IV PRN (17:05)
[2023-06-09] MEDS ORDERED: MIRT1TAB15 PO (17:06)
[2023-06-09] MEDS ORDERED: MORP15TA2 PO ×2 (17:14)
[2023-06-09] MEDS ORDERED: ONDA4TAB6 PO (17:16)
[2023-06-09] MEDS ORDERED: MORP-69 PO (17:21)
[2023-06-09] MEDS ORDERED: HOME MED LIST COMPLETE! XX SCH (17:25)
[2023-06-09] MEDS ORDERED: PILL CUTTER 1 EACH XX PRN (17:55)
[2023-06-09] MEDS ORDERED: KETOROLAC 30 MG/ML 1ML VIAL IV SCH (18:00)
[2023-06-09 18:13] LABS: ERYTHROCYTE SEDIMENTATION RATE 93 mm/hr (0-20)
[2023-06-09 18:14] LABS: PROCALCITONIN 0.79 ng/ml
[2023-06-09 20:15] VITALS: BP 124/82; TEMP 97.9; O2SAT 96
[2023-06-09] MEDS: cefTRIAXone SOD 1 GM in D5W MINI-BAG PLUS 50 ML IV SCH (20:32)
[2023-06-09] MEDS: levETIRAcetam 250MG TABLET (KEPPRA) PO SCH (20:33)
[2023-06-09] MEDS: MIRTAZAPINE 15 MG TAB PO SCH (20:33)
[2023-06-09] MEDS: KETOROLAC 30 MG/ML 1ML VIAL IV SCH (20:33)
[2023-06-09] MEDS: MORPHINE 15 MG SA TAB PO SCH (20:33)
[2023-06-09] MEDS: GABAPENTIN 100 MG CAP PO SCH (20:33)
[2023-06-09] MEDS: LACOSAMIDE 50 MG TAB (VIMPAT) PO SCH (20:33)
[2023-06-09] MEDS: LIDOCAINE 5% (LIDODERM) PATCH TD SCH (20:34)
[2023-06-10] VITALS (7 sets, daily range): BP systolic 100–107; BP diastolic 69–78; TEMP 97.3–97.7; O2SAT 95–98
[2023-06-10] MEDS: RIVAROXABAN 20MG TAB (XARELTO) PO SCH (07:53)
[2023-06-10] MEDS: MORPHINE 30 MG TAB **MSIR PO ONE (08:16)
[2023-06-10] MEDS: MORPHINE 30 MG SA TAB PO SCH (09:00)
[2023-06-10 09:20] LABS: APPEARANCE, BODY FLUID CLEAR (CLEAR); ASCITES FL COLOR YELLOW (COLORLESS); SOURCE, BODY FLUID ASCITES
[2023-06-10 10:02] LABS: SOURCE, BODY FLUID ALBUMIN ASCITES
[2023-06-10 10:07] LABS: SOURCE, BODY FLUID GLUCOSE ASCITES
[2023-06-10 10:09] LABS: SOURCE, BODY FLUID TOT PROTEIN ASCITES; TOTAL PROTEIN, BODY FLUID 3.8 G/DL (NOT ESTABLISHED)
[2023-06-10] MEDS ORDERED: MORPHINE 30 MG TAB **MSIR PO PRN (10:25)
[2023-06-10] MEDS: MAALOX 30 ML SUSP *UDC PO ONE (10:40)
[2023-06-10] MEDS ORDERED: ACETAMINOPHEN TAB 650MG DOSE (2X325MG) PO PRN (12:30)
[2023-06-10] MEDS ORDERED: SENN-52 PO (14:26)
[2023-06-10] MEDS ORDERED: MORP30TASA PO (14:26)
[2023-06-10] MEDS ORDERED: MORP15TA2 PO (14:26)
[2023-06-10] MEDS ORDERED: GABA-1171 PO (14:26)
[2023-06-10] MEDS: GABAPENTIN 100 MG CAP PO SCH (16:24)
[2023-06-11 05:20] VITALS: BP 100/72; TEMP 98.1; O2SAT 98
[2023-06-11] MEDS: RIVAROXABAN 20MG TAB (XARELTO) PO SCH (10:46)
== END 2023-06-11 16:20 | disposition home or self-care (01) | DRG 861 ==
LOC: EDBD 12:37 → EDSEX 12:37 → M ED 12:37 → M ED INP 16:06 → M MS5PR 20:15
PROVIDERS: ADMIT General Practice; ATTEND General Practice
PROC: 0W9G3ZZ Drainage of Peritoneal Cavity, Percutaneous Approach (ICD-10-PCS; principal; 2023-06-10 12:00)
DX: G89.3 Neoplasm related pain (acute) (chronic) (principal); R18.0 Malignant ascites; R64 Cachexia; E46 Unspecified protein-calorie malnutrition; C79.31 Secondary malignant neoplasm of brain; C78.00 Secondary malignant neoplasm of unspecified lung; C78.7 Secondary malignant neoplasm of liver and intrahepatic bile duct; R56.9 Unspecified convulsions; C43.9 Malignant melanoma of skin, unspecified; F32.A Depression, unspecified; K59.00 Constipation, unspecified; J98.11 Atelectasis; R62.7 Adult failure to thrive; Z79.01 Long term (current) use of anticoagulants; Z79.899 Other long term (current) drug therapy; Z86.711 Personal history of pulmonary embolism; Z88.8 Allergy status to other drugs, medicaments and biological substances; Z79.891 Long term (current) use of opiate analgesic

== ENCOUNTER 2023-06-16 15:45 | Outpatient (RCR) | payer BC ==
[~2023-06-16 15:45] MED LIST changes: +KEPP10002 PO; -MIRA1POW3 PO; +MIRA33506 PO; +MIRT1TAB15 PO; +MORP30TASA PO; +ONDA4TAB6 PO
[2023-06-18] MEDS ORDERED: KEPP10002 PO (13:49)
[2023-06-18] MEDS ORDERED: MORP30TASA PO (13:49)
[2023-06-18] MEDS ORDERED: MORP15TA2 PO (13:49)
[2023-06-18] MEDS ORDERED: SENN-52 PO (13:49)
[2023-06-26] MEDS ORDERED: METR-265 PO (11:47)
[2023-07-01] MEDS ORDERED: MIRT-10 PO (12:27)
[2023-07-02] MEDS ORDERED: LOVE0.4I2 SC (16:36)
[2023-07-03] MEDS ORDERED: SUCR1TA PO (11:35)
[2023-07-03] MEDS ORDERED: PANT40TA29 PO (11:35)
== END 2023-07-03 ==
LOC: M ONCR 15:45
PROVIDERS: ATTEND General Practice
DX: Z51.0 Encounter for antineoplastic radiation therapy (principal); C79.31 Secondary malignant neoplasm of brain

== ENCOUNTER → 2023-06-18 | Outpatient (CLI) | payer BC ==
[2023-06-18 08:36] VITALS: TEMP 98
[2023-06-18 09:15] VITALS: BP 104/68; O2SAT 95
== END ==
LOC: M IRPRO 08:27
PROVIDERS: ATTEND General Practice
DX: C43.9 Malignant melanoma of skin, unspecified (principal); R18.0 Malignant ascites

== ENCOUNTER → 2023-06-18 | Outpatient (CLI) | payer BC ==
[~2023-06-18] VITALS: Ht 154.9 cm; Wt 49.2 kg
[2023-06-18 11:23] VITALS: BP 104/75; O2SAT 100
== END ==
LOC: M PAL 10:20
PROVIDERS: ATTEND Nurse Practitioner Adult Health
DX: G89.3 Neoplasm related pain (acute) (chronic) (principal); C79.31 Secondary malignant neoplasm of brain; C78.00 Secondary malignant neoplasm of unspecified lung; C78.6 Secondary malignant neoplasm of retroperitoneum and peritoneum; C43.4 Malignant melanoma of scalp and neck; C43.71 Malignant melanoma of right lower limb, including hip; R10.84 Generalized abdominal pain; R18.0 Malignant ascites; K59.00 Constipation, unspecified; F32.A Depression, unspecified; Z51.5 Encounter for palliative care; Z79.01 Long term (current) use of anticoagulants; Z79.891 Long term (current) use of opiate analgesic; Z79.899 Other long term (current) drug therapy; Z88.8 Allergy status to other drugs, medicaments and biological substances; Z86.711 Personal history of pulmonary embolism; Z92.3 Personal history of irradiation; Z98.51 Tubal ligation status

== ENCOUNTER → 2023-06-26 | Outpatient (CLI) | payer BC ==
[~2023-06-26] VITALS: Ht 154.9 cm; Wt 49.6 kg
[~2023-06-26] MED LIST changes: +METR-265 PO
[2023-06-26 11:37] VITALS: BP 115/75; O2SAT 99
== END ==
LOC: M PAL 11:19
PROVIDERS: ATTEND Nurse Practitioner Adult Health
DX: G89.3 Neoplasm related pain (acute) (chronic) (principal); C79.31 Secondary malignant neoplasm of brain; C78.00 Secondary malignant neoplasm of unspecified lung; C78.6 Secondary malignant neoplasm of retroperitoneum and peritoneum; C43.4 Malignant melanoma of scalp and neck; C43.71 Malignant melanoma of right lower limb, including hip; R10.84 Generalized abdominal pain; R18.0 Malignant ascites; K59.00 Constipation, unspecified; F32.A Depression, unspecified; Z51.5 Encounter for palliative care; Z79.01 Long term (current) use of anticoagulants; Z79.891 Long term (current) use of opiate analgesic; Z79.899 Other long term (current) drug therapy; Z88.8 Allergy status to other drugs, medicaments and biological substances; Z86.711 Personal history of pulmonary embolism; Z92.3 Personal history of irradiation; Z98.51 Tubal ligation status

== ENCOUNTER 2023-06-30 12:04 | Inpatient (IN) | payer BC ==
[~2023-06-30] VITALS: Ht 154.9 cm; Wt 50.6 kg
[2023-06-30 13:04] LABS: BASO # 0.1 10^3/uL (0.0-0.2); BASO % 0.6 % (0.0-1.0); EOS # 0.2 10^3/uL (0.0-0.5); EOS % 2.5 % (0.0-3.0); HEMATOCRIT 35.8 % (36.0-47.0); HEMOGLOBIN 10.6 g/dl (12.0-15.5); LYMPH # 0.7 10^3/uL (1.5-5.0); LYMPH % 7.9 % (24.0-44.0); MEAN CORPUSCULAR HEMOGLOBIN 23.5 pg (27.0-33.0); MEAN CORPUSCULAR HGB CONC 29.6 g/dl (32.0-36.5); MEAN CORPUSCULAR VOLUME 79.4 fl (80.0-96.0); MONO # 0.5 10^3/uL (0.0-0.8); NEUTROPHILS % 81.6 % (36.0-66.0); PLATELET COUNT, AUTOMATED 464 10^3/uL (150-450); RED BLOOD COUNT 4.51 10^6/uL (4.00-5.40); WHITE BLOOD COUNT 8.5 10^3/uL (4.0-10.0)
[2023-06-30] MEDS: ONDANSETRON 4MG 2ML VIAL IV ONE (13:08)
[2023-06-30] MEDS: NS 1,000 ML IV SCH (13:08)
[2023-06-30] MEDS: PANTOPRAZOLE 40MG VIAL IV ONE (13:08)
[2023-06-30] MEDS: MAALOX 30 ML SUSP *UDC PO ONE (13:08)
[2023-06-30 13:22] LABS: INR 1.15; PARTIAL THROMBOPLASTIN TIME 31.6 SECONDS (24.8-34.2); PROTHROMBIN TIME 14.4 SECONDS (12.5-14.5)
[2023-06-30 13:31] LABS: CK-MB VALUE MASS < 1.0 NG/ML (<3.6); LIPASE 46 U/L (12-53)
[2023-06-30 13:32] LABS: CPK CREATINE PHOSPHOKINASE < 15 U/L (34-145)
[2023-06-30 13:33] LABS: ALBUMIN 2.1 G/DL (3.2-5.2); ALKALINE PHOSPHATASE 122 U/L (46-116); ALT/SGPT 9 U/L (7.0-40); AST/SGOT 27 U/L (<34); BILIRUBIN,DIRECT < 0.1 MG/DL (<0.4); BILIRUBIN,TOTAL 0.2 MG/DL (0.3-1.2); BLOOD UREA NITROGEN 19 MG/DL (9-23); CALCIUM LEVEL 8.5 MG/DL (8.5-10.1); CARBON DIOXIDE LEVEL 25 MMOL/L (20-31); CHLORIDE LEVEL 102 MMOL/L (98-107); CREATININE FOR GFR 0.83 MG/DL (0.55-1.30); GLOMERULAR FILTRATION RATE > 60.0 (>60); GLUCOSE, FASTING 123 MG/DL (60-100); POTASSIUM SERUM 4.4 MMOL/L (3.5-5.1); SODIUM LEVEL 134 MMOL/L (136-145); TOTAL PROTEIN 6.4 G/DL (5.7-8.2)
[2023-06-30 14:00] LABS: RSV AMPLIFICATION NEGATIVE (NEGATIVE)
[2023-06-30] MEDS ORDERED: ISOVUE-370 76% 100ML VIAL As Ordered ONE (14:10)
[2023-06-30] MEDS: MORPHINE 2 MG/ML 1ML VIAL IV ONE ×2 (14:43→20:30)
[2023-06-30 14:47] LABS: CK-MB VALUE MASS < 1.0 NG/ML (<3.6)
[2023-06-30 14:50] LABS: CPK CREATINE PHOSPHOKINASE < 15 U/L (34-145)
[2023-06-30] MEDS ORDERED: MED REC IN PROGRESS XX SCH (17:15)
[2023-06-30] MEDS: HEPARIN DRIP 25,000 UNITS in IV 1 EA IV SCH (17:19)
[2023-06-30] MEDS ORDERED: HEPARIN SOD (PORCINE) 5000UNITS/ML 1ML VIAL/SYRINGE IV PRN ×2 (18:55→22:50)
[2023-06-30] MEDS ORDERED: HOME MED LIST COMPLETE! XX SCH (19:35)
[2023-06-30 23:18] LABS: HEMATOCRIT 27.4 % (36.0-47.0); MEAN CORPUSCULAR HEMOGLOBIN 23.9 pg (27.0-33.0); MEAN CORPUSCULAR HGB CONC 30.3 g/dl (32.0-36.5); PLATELET COUNT, AUTOMATED 408 10^3/uL (150-450); RED BLOOD COUNT 3.47 10^6/uL (4.00-5.40); WHITE BLOOD COUNT 7.7 10^3/uL (4.0-10.0)
[2023-06-30 23:19] LABS: HEMOGLOBIN 8.3 g/dl (12.0-15.5)
[2023-06-30] MEDS ORDERED: HEPARIN DRIP 25,000 UNITS in IV 1 EA IV SCH (23:25)
[2023-06-30] MEDS: HEPARIN SOD (PORCINE) 5000UNITS/ML 1ML VIAL/SYRINGE IV PRN (23:53)
[2023-07-01 07:01] LABS: HEMATOCRIT 27.5 % (36.0-47.0); HEMOGLOBIN 8.2 g/dl (12.0-15.5); MEAN CORPUSCULAR HEMOGLOBIN 23.4 pg (27.0-33.0); MEAN CORPUSCULAR HGB CONC 29.8 g/dl (32.0-36.5); MEAN CORPUSCULAR VOLUME 78.6 fl (80.0-96.0); PLATELET COUNT, AUTOMATED 403 10^3/uL (150-450); WHITE BLOOD COUNT 6.7 10^3/uL (4.0-10.0)
[2023-07-01 07:49] LABS: ALBUMIN 1.7 G/DL (3.2-5.2); ALKALINE PHOSPHATASE 99 U/L (46-116); ALT/SGPT < 9 U/L (7.0-40); AST/SGOT 24 U/L (<34); BILIRUBIN,TOTAL 0.2 MG/DL (0.3-1.2); BLOOD UREA NITROGEN 10 MG/DL (9-23); CALCIUM LEVEL 7.4 MG/DL (8.5-10.1); CARBON DIOXIDE LEVEL 21 MMOL/L (20-31); CHLORIDE LEVEL 105 MMOL/L (98-107); CREATININE FOR GFR 0.73 MG/DL (0.55-1.30); GLOMERULAR FILTRATION RATE > 60.0 (>60); GLUCOSE, FASTING 86 MG/DL (60-100); POTASSIUM SERUM 4.4 MMOL/L (3.5-5.1); SODIUM LEVEL 132 MMOL/L (136-145); TOTAL PROTEIN 5.3 G/DL (5.7-8.2)
[2023-07-01] MEDS: CALCIUM CARBONATE 500 MG CHEW U/D PO SCH (08:10)
[2023-07-01] MEDS: PANTOPRAZOLE 40MG TAB (PROTONIX) PO SCH (08:10)
[2023-07-01] MEDS: MORPHINE 2 MG/ML 1ML VIAL IV PRN (08:11)
[2023-07-01] MEDS ORDERED: MIRT-10 PO (12:27)
[2023-07-01] MEDS ORDERED: SENOKOT S TAB PO PRN (14:35)
[2023-07-01] MEDS: GABAPENTIN 100 MG CAP PO SCH (15:28)
[2023-07-01] MEDS: ENOXAPARIN 60MG/0.6ML SYRINGE (J1650 PER 10MG) SC SCH (15:28)
[2023-07-01] MEDS: FIORICET TAB PO PRN (15:44)
[2023-07-01 18:55] VITALS: BP 100/64; TEMP 97.8; O2SAT 96
[2023-07-01 19:30] VITALS: BP 99/63; TEMP 97.8; O2SAT 96
[2023-07-01] MEDS: MIRTAZAPINE 15 MG TAB PO SCH (21:36)
[2023-07-01] MEDS: LACOSAMIDE 50 MG TAB (VIMPAT) PO SCH (21:36)
[2023-07-01] MEDS: levETIRAcetam 250MG TABLET (KEPPRA) PO SCH (21:36)
[2023-07-01 23:48] VITALS: BP 105/59; TEMP 97.6; O2SAT 96
[2023-07-02] VITALS (8 sets, daily range): BP systolic 98–123; BP diastolic 57–95; TEMP 96.7–101.6; O2SAT 95–98
[2023-07-02] MEDS: ACETAMINOPHEN TAB 650MG DOSE (2X325MG) PO PRN (04:18)
[2023-07-02 05:25] LABS: BASO % 0.4 % (0.0-1.0); EOS # 0.3 10^3/uL (0.0-0.5); EOS % 6.3 % (0.0-3.0); HEMATOCRIT 24.5 % (36.0-47.0); HEMOGLOBIN 7.3 g/dl (12.0-15.5); LYMPH # 0.9 10^3/uL (1.5-5.0); MEAN CORPUSCULAR HEMOGLOBIN 23.1 pg (27.0-33.0); MEAN CORPUSCULAR HGB CONC 29.8 g/dl (32.0-36.5); MEAN CORPUSCULAR VOLUME 77.5 fl (80.0-96.0); MONO # 0.4 10^3/uL (0.0-0.8); MONO % 6.6 % (2.0-8.0); NEUTROPHILS # 3.8 10^3/uL (1.5-8.5); NEUTROPHILS % 69.8 % (36.0-66.0); PLATELET COUNT, AUTOMATED 375 10^3/uL (150-450); RED BLOOD COUNT 3.16 10^6/uL (4.00-5.40); WHITE BLOOD COUNT 5.4 10^3/uL (4.0-10.0)
[2023-07-02 05:56] LABS: BLOOD UREA NITROGEN 6 MG/DL (9-23); CALCIUM LEVEL 6.9 MG/DL (8.5-10.1); CARBON DIOXIDE LEVEL 20 MMOL/L (20-31); CHLORIDE LEVEL 109 MMOL/L (98-107); CREATININE FOR GFR 0.72 MG/DL (0.55-1.30); GLOMERULAR FILTRATION RATE > 60.0 (>60); GLUCOSE, FASTING 89 MG/DL (60-100); MAGNESIUM LEVEL 1.6 MG/DL (1.8-2.4); POTASSIUM SERUM 3.7 MMOL/L (3.5-5.1); SODIUM LEVEL 134 MMOL/L (136-145)
[2023-07-02] MEDS: MAG SULF 1GM/100ML (MAG RUN) 1 GM in IV 1 EA IV SCH (06:30)
[2023-07-02 12:34] LABS: HEMATOCRIT 30.4 % (36.0-47.0); HEMOGLOBIN 9.1 g/dl (12.0-15.5)
[2023-07-02] MEDS ORDERED: LOVE0.4I2 SC (16:36)
[2023-07-03 00:44] VITALS: BP 107/71; TEMP 101.7; O2SAT 94
[2023-07-03 02:21] VITALS: TEMP 100.3
[2023-07-03] MEDS ORDERED: VANICREAM MOISTURIZING SKIN CREAM 113GM TUBE TOP PRN (03:20)
[2023-07-03] MEDS: diphenhydrAMINE 25MG CAP PO ONE (03:37)
[2023-07-03 03:39] VITALS: BP 115/69; TEMP 99.2; O2SAT 92
[2023-07-03 07:36] VITALS: BP 109/73; TEMP 97.1; O2SAT 97
[2023-07-03 08:11] LABS: BLOOD UREA NITROGEN 6 MG/DL (9-23); CALCIUM LEVEL 7.3 MG/DL (8.5-10.1); CARBON DIOXIDE LEVEL 18 MMOL/L (20-31); CHLORIDE LEVEL 108 MMOL/L (98-107); CREATININE FOR GFR 0.64 MG/DL (0.55-1.30); GLOMERULAR FILTRATION RATE > 60.0 (>60); GLUCOSE, FASTING 93 MG/DL (60-100); POTASSIUM SERUM 4.2 MMOL/L (3.5-5.1); SODIUM LEVEL 134 MMOL/L (136-145)
[2023-07-03 10:36] LABS: BASO % 0.3 % (0.0-1.0); EOS # 0.7 10^3/uL (0.0-0.5); EOS % 9.4 % (0.0-3.0); HEMATOCRIT 29.8 % (36.0-47.0); LYMPH # 0.9 10^3/uL (1.5-5.0); LYMPH % 12.4 % (24.0-44.0); MEAN CORPUSCULAR HEMOGLOBIN 24.1 pg (27.0-33.0); MEAN CORPUSCULAR HGB CONC 30.2 g/dl (32.0-36.5); MEAN CORPUSCULAR VOLUME 79.7 fl (80.0-96.0); MONO # 0.4 10^3/uL (0.0-0.8); MONO % 5.9 % (2.0-8.0); NEUTROPHILS # 5.2 10^3/uL (1.5-8.5); NEUTROPHILS % 71.2 % (36.0-66.0); PLATELET COUNT, AUTOMATED 399 10^3/uL (150-450); RED BLOOD COUNT 3.74 10^6/uL (4.00-5.40); WHITE BLOOD COUNT 7.3 10^3/uL (4.0-10.0)
[2023-07-03] MEDS ORDERED: PANT40TA29 PO (11:35)
[2023-07-03] MEDS ORDERED: SUCR1TA PO (11:35)
[2023-07-03] MEDS: ONDANSETRON 4MG 2ML VIAL IV PRN (11:50)
[2023-07-03] MEDS: SUCRALFATE 1 GM TAB PO SCH (11:50)
[2023-07-03 13:14] VITALS: TEMP 99.1
== END 2023-07-03 16:51 | disposition home health service (06) | DRG 134 ==
LOC: M ED 12:04 → M ED INP 17:02 → OBSVTOIN 07-01 07:24 → ENRESERV 07-01 16:27 → M PCU 07-01 17:51
PROVIDERS: ADMIT Internal Medicine; ATTEND Student in an Organized Health Care Education/Training Program
DX: I26.99 Other pulmonary embolism without acute cor pulmonale (principal); I82.220 Acute embolism and thrombosis of inferior vena cava; R18.0 Malignant ascites; C78.7 Secondary malignant neoplasm of liver and intrahepatic bile duct; C78.01 Secondary malignant neoplasm of right lung; C78.02 Secondary malignant neoplasm of left lung; C79.31 Secondary malignant neoplasm of brain; C78.6 Secondary malignant neoplasm of retroperitoneum and peritoneum; C78.80 Secondary malignant neoplasm of unspecified digestive organ; C79.51 Secondary malignant neoplasm of bone; R56.9 Unspecified convulsions; C43.9 Malignant melanoma of skin, unspecified; F32.A Depression, unspecified; Z91.148 Patient's other noncompliance with medication regimen for other reason; T45.516A Underdosing of anticoagulants, initial encounter; Z79.01 Long term (current) use of anticoagulants; Z79.899 Other long term (current) drug therapy; Z88.8 Allergy status to other drugs, medicaments and biological substances

== ENCOUNTER 2023-07-10 16:47 | Emergency (ER) | payer BC, SELFPAY ==
[~2023-07-10] VITALS: Ht 154.9 cm; Wt 47.8 kg
[~2023-07-10 16:47] MED LIST changes: +LOVE0.4I2 SC; +PANT40TA29 PO; +SUCR1TA PO
[2023-07-10 21:10] LABS: BASO % 0.4 % (0.0-1.0); EOS # 1.2 10^3/uL (0.0-0.5); EOS % 14.9 % (0.0-3.0); HEMATOCRIT 29.9 % (36.0-47.0); HEMOGLOBIN 9.1 g/dl (12.0-15.5); LYMPH # 1.3 10^3/uL (1.5-5.0); LYMPH % 16.1 % (24.0-44.0); MEAN CORPUSCULAR HEMOGLOBIN 24.7 pg (27.0-33.0); MEAN CORPUSCULAR HGB CONC 30.4 g/dl (32.0-36.5); MEAN CORPUSCULAR VOLUME 81.3 fl (80.0-96.0); MONO # 0.5 10^3/uL (0.0-0.8); MONO % 6.4 % (2.0-8.0); NEUTROPHILS # 5.1 10^3/uL (1.5-8.5); NEUTROPHILS % 61.5 % (36.0-66.0); PLATELET COUNT, AUTOMATED 580 10^3/uL (150-450); RED BLOOD COUNT 3.68 10^6/uL (4.00-5.40); WHITE BLOOD COUNT 8.2 10^3/uL (4.0-10.0)
[2023-07-10 21:26] LABS: ERYTHROCYTE SEDIMENTATION RATE 67 mm/hr (0-20)
[2023-07-10 21:31] LABS: LIPASE 26 U/L (12-53)
[2023-07-10 21:32] LABS: CK-MB VALUE MASS < 1.0 NG/ML (<3.6)
[2023-07-10 21:40] LABS: PROCALCITONIN 0.12 ng/ml
[2023-07-10 21:44] LABS: ALKALINE PHOSPHATASE 192 U/L (46-116); ALT/SGPT 27 U/L (7.0-40); AST/SGOT 52 U/L (<34); BILIRUBIN,DIRECT 0.1 MG/DL (<0.4); BILIRUBIN,TOTAL 0.3 MG/DL (0.3-1.2); BLOOD UREA NITROGEN < 5 MG/DL (9-23); CALCIUM LEVEL 7.8 MG/DL (8.5-10.1); CARBON DIOXIDE LEVEL 26 MMOL/L (20-31); CHLORIDE LEVEL 101 MMOL/L (98-107); CPK CREATINE PHOSPHOKINASE 230 U/L (34-145); CREATININE FOR GFR 0.53 MG/DL (0.55-1.30); D-DIMER QUANT 3.91 ug/mL (<0.5); GLOMERULAR FILTRATION RATE > 60.0 (>58); GLUCOSE, FASTING 102 MG/DL (60-100); INR 1.09; MB/CK RELATIVE INDEX 0.43 (< OR =4); PARTIAL THROMBOPLASTIN TIME 38.3 SECONDS (24.8-34.2); POTASSIUM SERUM 3.8 MMOL/L (3.5-5.1); PROTHROMBIN TIME 13.8 SECONDS (12.5-14.5); SODIUM LEVEL 133 MMOL/L (136-145); TOTAL PROTEIN 6.6 G/DL (5.7-8.2)
[2023-07-10] MEDS: dexAMETHasone 20MG/5ML VIAL IV ONE (23:35)
[2023-07-10] MEDS ORDERED: DEXA4TA PO (23:59)
[2023-07-11 00:15] VITALS: BP 111/60; TEMP 97.9; O2SAT 96
[2023-07-14] MEDS ORDERED: XARE15TA PO (14:27)
[2023-07-14] MEDS ORDERED: DEXA4TA PO (14:27)
[2023-07-14] MEDS ORDERED: SENN-52 PO (14:27)
== END 2023-07-11 00:18 | disposition home or self-care (01) ==
LOC: M ED 16:47
DX: G93.6 Cerebral edema (principal); R20.2 Paresthesia of skin; R07.9 Chest pain, unspecified; Z86.718 Personal history of other venous thrombosis and embolism; Z86.711 Personal history of pulmonary embolism; R56.9 Unspecified convulsions; F32.A Depression, unspecified; R45.851 Suicidal ideations; Z88.8 Allergy status to other drugs, medicaments and biological substances; Z79.899 Other long term (current) drug therapy
CPT/HCPCS: 70450; 71046; 73030; 80048; 80076; 82550; 82553; 83690; 83880; 84145; 84484; 85025; 85379; 85610; 85652; 85730; 86140; 93005; 93041; 93971; 96374; 99284; J1100

== ENCOUNTER 2023-07-27 13:20 | Inpatient (IN) | payer BC, SELFPAY ==
[~2023-07-27] VITALS: Ht 154.9 cm; Wt 42.2 kg
[~2023-07-27 13:20] MED LIST changes: +DEXA4TA PO; +XARE15TA PO
[2023-07-27] MEDS: NS 1,000 ML IV ONE (14:09)
[2023-07-27] MEDS: ONDANSETRON 4MG 2ML VIAL IV ONE (14:09)
[2023-07-27 14:12] LABS: BASO # 0.1 10^3/uL (0.0-0.2); BASO % 1.1 % (0.0-1.0); EOS # 0.2 10^3/uL (0.0-0.5); EOS % 1.9 % (0.0-3.0); HEMATOCRIT 33.5 % (36.0-47.0); HEMOGLOBIN 10.4 g/dl (12.0-15.5); LYMPH % 9.5 % (24.0-44.0); MEAN CORPUSCULAR HEMOGLOBIN 26.7 pg (27.0-33.0); MEAN CORPUSCULAR VOLUME 86.1 fl (80.0-96.0); MONO # 0.5 10^3/uL (0.0-0.8); MONO % 4.5 % (2.0-8.0); NEUTROPHILS # 8.6 10^3/uL (1.5-8.5); NEUTROPHILS % 82.6 % (36.0-66.0); PLATELET COUNT, AUTOMATED 551 10^3/uL (150-450); RED BLOOD COUNT 3.89 10^6/uL (4.00-5.40); WHITE BLOOD COUNT 10.4 10^3/uL (4.0-10.0)
[2023-07-27 14:42] LABS: LIPASE 36 U/L (12-53)
[2023-07-27 14:45] LABS: ALKALINE PHOSPHATASE 157 U/L (46-116); ALT/SGPT 16 U/L (7.0-40); AST/SGOT 29 U/L (<34); BILIRUBIN,DIRECT 0.1 MG/DL (<0.4); BILIRUBIN,TOTAL 0.3 MG/DL (0.3-1.2); BLOOD UREA NITROGEN 13 MG/DL (9-23); CALCIUM LEVEL 9.5 MG/DL (8.5-10.1); CARBON DIOXIDE LEVEL 26 MMOL/L (20-31); CHLORIDE LEVEL 102 MMOL/L (98-107); CREATININE FOR GFR 0.65 MG/DL (0.55-1.30); GLOMERULAR FILTRATION RATE > 60.0 (>58); GLUCOSE, FASTING 89 MG/DL (60-100); POTASSIUM SERUM 4.1 MMOL/L (3.5-5.1); SODIUM LEVEL 136 MMOL/L (136-145); TOTAL PROTEIN 7.4 G/DL (5.7-8.2)
[2023-07-27 14:50] LABS: RSV AMPLIFICATION NEGATIVE (NEGATIVE)
[2023-07-27] MEDS: dexAMETHasone 20MG/5ML VIAL IV ONE (14:57)
[2023-07-27] MEDS: ACETAMINOPHEN *IV* 1,000 MG in IV 1 EA IV ONE (15:53)
[2023-07-27] MEDS: MORPHINE 4 MG/ML 1ML VIAL IV ONE (18:24)
[2023-07-27] MEDS: RIVAROXABAN 15MG TAB (XARELTO) PO ONE (19:52)
[2023-07-27] MEDS: levETIRAcetam INJection 500 MG in D5W MINI-BAG PLUS 100 ML IV ONE (21:11)
[2023-07-27] MEDS: LACOSAMIDE 10MG/ML 20ML VIAL (VIMPAT) IV STA (21:32)
[2023-07-27] MEDS ORDERED: SUCR1TAB56 PO (22:13)
[2023-07-27] MEDS ORDERED: PANT-23 PO (22:13)
[2023-07-27] MEDS ORDERED: HOME MED LIST COMPLETE! XX SCH (22:15)
[2023-07-27 22:30] VITALS: BP 117/71; TEMP 97.9; O2SAT 100
[2023-07-27] MEDS: ACETAMINOPHEN TAB 650MG DOSE (2X325MG) PO PRN (23:06)
[2023-07-28 05:22] VITALS: BP 111/68; TEMP 98.1; O2SAT 98
[2023-07-28] MEDS ORDERED: PROMETHAZINE 25MG/ML 1ML VIAL IV PRN (05:55)
[2023-07-28] MEDS ORDERED: SENOKOT S TAB PO PRN (07:40)
[2023-07-28] MEDS ORDERED: PROCHLORPERAZINE 5MG TAB PO PRN (07:40)
[2023-07-28 08:18] LABS: BLOOD UREA NITROGEN 11 MG/DL (9-23); CALCIUM LEVEL 9.1 MG/DL (8.5-10.1); CARBON DIOXIDE LEVEL 25 MMOL/L (20-31); CHLORIDE LEVEL 103 MMOL/L (98-107); CREATININE FOR GFR 0.59 MG/DL (0.55-1.30); GLOMERULAR FILTRATION RATE > 60.0 (>58); GLUCOSE, FASTING 83 MG/DL (60-100); POTASSIUM SERUM 4.3 MMOL/L (3.5-5.1); SODIUM LEVEL 135 MMOL/L (136-145)
[2023-07-28] MEDS ORDERED: PILL CUTTER 1 EACH XX PRN (08:35)
[2023-07-28] MEDS ORDERED: PROHANCE 279.3MG/ML 5ML VIAL As Ordered ONE (08:41)
[2023-07-28] MEDS: dexAMETHasone 20MG/5ML VIAL IV SCH (09:44)
[2023-07-28] MEDS: GABAPENTIN 100 MG CAP PO SCH (09:45)
[2023-07-28] MEDS: LACOSAMIDE 50 MG TAB (VIMPAT) PO SCH (09:45)
[2023-07-28] MEDS: MIRTAZAPINE 15 MG TAB PO SCH (09:45)
[2023-07-28] MEDS: levETIRAcetam 250MG TABLET (KEPPRA) PO SCH (09:45)
[2023-07-28] MEDS: PANTOPRAZOLE 40MG TAB (PROTONIX) PO SCH (09:45)
[2023-07-28] MEDS: SUCRALFATE 1 GM TAB PO SCH (09:45)
[2023-07-28] MEDS: ACETAMINOPHEN *IV* 1,000 MG in IV 1 EA IV ONE (09:46)
[2023-07-28] MEDS ORDERED: HOME MED LIST COMPLETE! XX SCH (10:35)
[2023-07-28] MEDS: MORPHINE 30 MG TAB **MSIR PO PRN (10:56)
[2023-07-28] MEDS ORDERED: DEXA4TA PO (11:10)
[2023-07-28] MEDS ORDERED: NAME5TAB13 PO (11:17)
[2023-07-28] MEDS ORDERED: RIVAROXABAN 20MG TAB (XARELTO) PO SCH (18:00)
[2023-07-29] MEDS ORDERED: NAME5TAB13 PO (08:13)
[2023-07-30] MEDS ORDERED: ONDA-83 PO (10:06)
== END 2023-07-28 18:00 | disposition home or self-care (01) | DRG 52 ==
LOC: M ED 13:20 → M ED INP 20:31 → ENRESERV 20:56 → M MS5PR 22:40
PROVIDERS: ADMIT Internal Medicine; ATTEND General Practice
DX: G93.6 Cerebral edema (principal); C79.31 Secondary malignant neoplasm of brain; C43.4 Malignant melanoma of scalp and neck; C43.71 Malignant melanoma of right lower limb, including hip; G40.909 Epilepsy, unspecified, not intractable, without status epilepticus; F32.A Depression, unspecified; K21.9 Gastro-esophageal reflux disease without esophagitis; R51.9 Headache, unspecified; Z86.711 Personal history of pulmonary embolism; Z79.899 Other long term (current) drug therapy; Z88.8 Allergy status to other drugs, medicaments and biological substances; Z11.52 Encounter for screening for COVID-19

== ENCOUNTER 2023-08-01 09:27 | Outpatient (RCR) | payer BC, SELFPAY ==
[2023-07-30] MEDS: ONDANSETRON 4MG ORAL DISINTEGRATING TAB SL PRN (09:47)
[2023-07-31] MEDS: ONDANSETRON 4MG ORAL DISINTEGRATING TAB PO ONE (09:45)
[~2023-08-01 09:27] MED LIST changes: +NAME5TAB13 PO; +ONDANSETRON 4MG ORAL DISINTEGRATING TAB SL ONE; +PANT-23 PO; +SUCR1TAB56 PO
== END 2023-08-03 ==
LOC: M ONCR 09:27
PROVIDERS: ATTEND General Practice
DX: Z51.0 Encounter for antineoplastic radiation therapy (principal); C79.31 Secondary malignant neoplasm of brain

== ENCOUNTER 2023-08-06 15:12 | Inpatient (IN) | payer SELFPAY ==
[~2023-08-06] VITALS: Ht 154.9 cm; Wt 45.0 kg
[~2023-08-06 15:12] MED LIST changes: +FLUO-290 PO; -FLUO10CA18 PO; -ONDANSETRON 4MG ORAL DISINTEGRATING TAB SL ONE
[2023-08-06] MEDS ORDERED: SENOKOT S TAB PO PRN (17:15)
[2023-08-06 17:35] LABS: BASO % 0.2 % (0.0-1.0); EOS # 0.2 10^3/uL (0.0-0.5); EOS % 1.6 % (0.0-3.0); HEMATOCRIT 41.1 % (36.0-47.0); HEMOGLOBIN 13.3 g/dl (12.0-15.5); LYMPH # 0.8 10^3/uL (1.5-5.0); LYMPH % 5.4 % (24.0-44.0); MEAN CORPUSCULAR HEMOGLOBIN 27.7 pg (27.0-33.0); MEAN CORPUSCULAR HGB CONC 32.4 g/dl (32.0-36.5); MEAN CORPUSCULAR VOLUME 85.6 fl (80.0-96.0); MONO # 1.3 10^3/uL (0.0-0.8); MONO % 8.2 % (2.0-8.0); NEUTROPHILS # 12.8 10^3/uL (1.5-8.5); NEUTROPHILS % 83.8 % (36.0-66.0); PLATELET COUNT, AUTOMATED 414 10^3/uL (150-450); WHITE BLOOD COUNT 15.2 10^3/uL (4.0-10.0)
[2023-08-06 17:36] VITALS: BP 109/73; TEMP 91.9; TEMP 97.9; O2SAT 98
[2023-08-06 17:52] LABS: ALBUMIN 3.3 G/DL (3.2-5.2); ALKALINE PHOSPHATASE 130 U/L (46-116); ALT/SGPT 61 U/L (7.0-40); AST/SGOT 39 U/L (<34); BILIRUBIN,TOTAL 0.5 MG/DL (0.3-1.2); BLOOD UREA NITROGEN 12 MG/DL (9-23); CALCIUM LEVEL 8.3 MG/DL (8.5-10.1); CARBON DIOXIDE LEVEL 26 MMOL/L (20-31); CHLORIDE LEVEL 100 MMOL/L (98-107); CREATININE FOR GFR 0.58 MG/DL (0.55-1.30); GLOMERULAR FILTRATION RATE > 60.0 (>58); GLUCOSE, FASTING 115 MG/DL (60-100); POTASSIUM SERUM 4.2 MMOL/L (3.5-5.1); SODIUM LEVEL 133 MMOL/L (136-145); TOTAL PROTEIN 7.5 G/DL (5.7-8.2)
[2023-08-06] MEDS ORDERED: HOME MED LIST COMPLETE! XX SCH (18:55)
[2023-08-06] MEDS: ONDANSETRON 4MG 2ML VIAL IV PRN (19:29)
[2023-08-06] MEDS: ACETAMINOPHEN TAB 650MG DOSE (2X325MG) PO PRN (19:29)
[2023-08-06] MEDS ORDERED: PILL CUTTER 1 EACH XX PRN (20:00)
[2023-08-06 20:17] VITALS: BP 117/69; TEMP 97.6; O2SAT 98
[2023-08-06] MEDS: dexAMETHasone 20MG/5ML VIAL IV SCH (21:34)
[2023-08-06] MEDS: LACOSAMIDE 50 MG TAB (VIMPAT) PO SCH (21:34)
[2023-08-06] MEDS: SUCRALFATE 1 GM TAB PO SCH (21:34)
[2023-08-06] MEDS: MIRTAZAPINE 15 MG TAB PO SCH (21:34)
[2023-08-06] MEDS: levETIRAcetam 250MG TABLET (KEPPRA) PO SCH (21:34)
[2023-08-06] MEDS: GABAPENTIN 100 MG CAP PO SCH (21:34)
[2023-08-06 23:39] VITALS: BP 110/68; TEMP 97.8; O2SAT 97
[2023-08-07] VITALS (7 sets, daily range): BP systolic 107–125; BP diastolic 67–78; TEMP 97.6–98.1; O2SAT 96–100
[2023-08-07 06:14] LABS: HEMATOCRIT 37.3 % (36.0-47.0); HEMOGLOBIN 12.1 g/dl (12.0-15.5); MEAN CORPUSCULAR HEMOGLOBIN 27.5 pg (27.0-33.0); MEAN CORPUSCULAR HGB CONC 32.4 g/dl (32.0-36.5); MEAN CORPUSCULAR VOLUME 84.8 fl (80.0-96.0); PLATELET COUNT, AUTOMATED 370 10^3/uL (150-450); WHITE BLOOD COUNT 11.2 10^3/uL (4.0-10.0)
[2023-08-07 06:32] LABS: BLOOD UREA NITROGEN 13 MG/DL (9-23); CARBON DIOXIDE LEVEL 21 MMOL/L (20-31); CHLORIDE LEVEL 102 MMOL/L (98-107); GLOMERULAR FILTRATION RATE > 60.0 (>58); GLUCOSE, FASTING 146 MG/DL (60-100); POTASSIUM SERUM 4.8 MMOL/L (3.5-5.1); SODIUM LEVEL 129 MMOL/L (136-145)
[2023-08-07] MEDS: RIVAROXABAN 20MG TAB (XARELTO) PO SCH (08:50)
[2023-08-07] MEDS: PANTOPRAZOLE 40MG TAB (PROTONIX) PO SCH (08:51)
[2023-08-07] MEDS: NS 1,000 ML IV SCH (09:03)
[2023-08-07] MEDS: MORPHINE 30 MG TAB **MSIR PO PRN (12:46)
[2023-08-07] MEDS ORDERED: PROCHLORPERAZINE 5MG TAB PO PRN (13:20)
[2023-08-07] MEDS: MEMANTINE 5MG TABLET (NAMENDA) PO SCH (13:54)
[2023-08-07] MEDS: levETIRAcetam 250MG TABLET (KEPPRA) PO SCH (20:22)
[2023-08-08 04:01] VITALS: BP 106/70; TEMP 97.8; O2SAT 98
[2023-08-08 06:39] LABS: ALBUMIN 2.4 G/DL (3.2-5.2); ALKALINE PHOSPHATASE 102 U/L (46-116); ALT/SGPT 45 U/L (7.0-40); AST/SGOT 22 U/L (<34); BILIRUBIN,TOTAL 0.2 MG/DL (0.3-1.2); BLOOD UREA NITROGEN 9 MG/DL (9-23); CALCIUM LEVEL 7.2 MG/DL (8.5-10.1); CARBON DIOXIDE LEVEL 20 MMOL/L (20-31); CHLORIDE LEVEL 107 MMOL/L (98-107); CREATININE FOR GFR 0.46 MG/DL (0.55-1.30); GLOMERULAR FILTRATION RATE > 60.0 (>58); GLUCOSE, FASTING 123 MG/DL (60-100); POTASSIUM SERUM 4.7 MMOL/L (3.5-5.1); SODIUM LEVEL 135 MMOL/L (136-145); TOTAL PROTEIN 5.8 G/DL (5.7-8.2)
[2023-08-08 07:42] VITALS: BP 114/78; O2SAT 97
[2023-08-08 11:59] VITALS: BP 129/79; TEMP 99; O2SAT 99
[2023-08-08 16:22] VITALS: BP 131/83; TEMP 98.3; O2SAT 98
[2023-08-08 19:28] VITALS: BP 113/76; TEMP 97.5; O2SAT 98
[2023-08-08] MEDS: DOCUSATE SODIUM 100MG CAPSULE PO SCH (21:33)
[2023-08-08] MEDS: SENNA 8.6 MG TAB (SENOKOT) PO SCH (21:33)
[2023-08-08 23:17] VITALS: BP 104/62; TEMP 97.7; O2SAT 97
[2023-08-09 03:22] VITALS: BP 111/74; TEMP 98.3; O2SAT 96
[2023-08-09 06:06] LABS: HEMATOCRIT 33.5 % (36.0-47.0); HEMOGLOBIN 10.6 g/dl (12.0-15.5); MEAN CORPUSCULAR HEMOGLOBIN 27.3 pg (27.0-33.0); MEAN CORPUSCULAR HGB CONC 31.6 g/dl (32.0-36.5); MEAN CORPUSCULAR VOLUME 86.3 fl (80.0-96.0); PLATELET COUNT, AUTOMATED 322 10^3/uL (150-450); RED BLOOD COUNT 3.88 10^6/uL (4.00-5.40); WHITE BLOOD COUNT 16.3 10^3/uL (4.0-10.0)
[2023-08-09 06:27] LABS: ALBUMIN 2.6 G/DL (3.2-5.2); ALKALINE PHOSPHATASE 131 U/L (46-116); ALT/SGPT 71 U/L (7.0-40); AST/SGOT 35 U/L (<34); BILIRUBIN,TOTAL 0.2 MG/DL (0.3-1.2); BLOOD UREA NITROGEN 11 MG/DL (9-23); CALCIUM LEVEL 7.8 MG/DL (8.5-10.1); CARBON DIOXIDE LEVEL 22 MMOL/L (20-31); CHLORIDE LEVEL 106 MMOL/L (98-107); CREATININE FOR GFR 0.49 MG/DL (0.55-1.30); GLOMERULAR FILTRATION RATE > 60.0 (>58); GLUCOSE, FASTING 113 MG/DL (60-100); POTASSIUM SERUM 4.8 MMOL/L (3.5-5.1); SODIUM LEVEL 136 MMOL/L (136-145)
[2023-08-09 07:28] VITALS: BP 121/79; TEMP 98.5; O2SAT 98
[2023-08-09 11:40] VITALS: BP 120/74; TEMP 99.1; O2SAT 97
[2023-08-09] MEDS: MOM 30ML SUSPENSION UDC PO PRN (15:18)
[2023-08-09 15:53] VITALS: BP 116/70; TEMP 98.2; O2SAT 96
[2023-08-09 19:11] VITALS: BP 120/74; TEMP 97.2; O2SAT 96
[2023-08-10 03:09] VITALS: BP 105/56; TEMP 97.1; O2SAT 97
[2023-08-10 06:04] LABS: HEMATOCRIT 34.3 % (36.0-47.0); MEAN CORPUSCULAR HEMOGLOBIN 27.8 pg (27.0-33.0); MEAN CORPUSCULAR HGB CONC 32.1 g/dl (32.0-36.5); MEAN CORPUSCULAR VOLUME 86.6 fl (80.0-96.0); PLATELET COUNT, AUTOMATED 331 10^3/uL (150-450); RED BLOOD COUNT 3.96 10^6/uL (4.00-5.40); WHITE BLOOD COUNT 17.4 10^3/uL (4.0-10.0)
[2023-08-10 06:26] LABS: ALBUMIN 2.6 G/DL (3.2-5.2); ALKALINE PHOSPHATASE 177 U/L (46-116); ALT/SGPT 127 U/L (7.0-40); AST/SGOT 61 U/L (<34); BILIRUBIN,TOTAL 0.2 MG/DL (0.3-1.2); BLOOD UREA NITROGEN 16 MG/DL (9-23); CALCIUM LEVEL 8.3 MG/DL (8.5-10.1); CARBON DIOXIDE LEVEL 22 MMOL/L (20-31); CHLORIDE LEVEL 103 MMOL/L (98-107); CREATININE FOR GFR 0.51 MG/DL (0.55-1.30); GLOMERULAR FILTRATION RATE > 60.0 (>58); GLUCOSE, FASTING 109 MG/DL (60-100); POTASSIUM SERUM 4.9 MMOL/L (3.5-5.1); SODIUM LEVEL 134 MMOL/L (136-145); TOTAL PROTEIN 6.2 G/DL (5.7-8.2)
[2023-08-10 07:57] VITALS: BP 119/77; TEMP 97.5; O2SAT 97
[2023-08-10 16:18] VITALS: BP 107/66; TEMP 98.6; O2SAT 97
[2023-08-10 19:38] VITALS: BP 120/85; TEMP 98.4; O2SAT 98
[2023-08-11 03:21] VITALS: BP 111/73; TEMP 97.7; O2SAT 97
[2023-08-11 06:18] LABS: HEMATOCRIT 33.8 % (36.0-47.0); HEMOGLOBIN 10.7 g/dl (12.0-15.5); MEAN CORPUSCULAR HEMOGLOBIN 27.4 pg (27.0-33.0); MEAN CORPUSCULAR HGB CONC 31.7 g/dl (32.0-36.5); MEAN CORPUSCULAR VOLUME 86.7 fl (80.0-96.0); PLATELET COUNT, AUTOMATED 331 10^3/uL (150-450); WHITE BLOOD COUNT 16.5 10^3/uL (4.0-10.0)
[2023-08-11 06:36] LABS: ALBUMIN 2.4 G/DL (3.2-5.2); ALKALINE PHOSPHATASE 202 U/L (46-116); ALT/SGPT 167 U/L (7.0-40); AST/SGOT 88 U/L (<34); BILIRUBIN,TOTAL 0.2 MG/DL (0.3-1.2); BLOOD UREA NITROGEN 15 MG/DL (9-23); CALCIUM LEVEL 7.3 MG/DL (8.5-10.1); CARBON DIOXIDE LEVEL 21 MMOL/L (20-31); CHLORIDE LEVEL 104 MMOL/L (98-107); CREATININE FOR GFR 0.46 MG/DL (0.55-1.30); GLOMERULAR FILTRATION RATE > 60.0 (>58); GLUCOSE, FASTING 119 MG/DL (60-100); POTASSIUM SERUM 4.8 MMOL/L (3.5-5.1); SODIUM LEVEL 134 MMOL/L (136-145); TOTAL PROTEIN 5.9 G/DL (5.7-8.2)
[2023-08-11 07:24] VITALS: BP 117/74; TEMP 97.4; O2SAT 99
[2023-08-11 16:04] VITALS: BP 119/77; TEMP 98.1; O2SAT 100
[2023-08-11 18:37] VITALS: BP 114/76; TEMP 98.2; O2SAT 96
[2023-08-11 20:00] VITALS: BP 116/69; TEMP 97.4; O2SAT 99
[2023-08-12 00:51] VITALS: BP 101/67; TEMP 98; O2SAT 98
[2023-08-12 04:34] VITALS: BP 99/57; TEMP 98; O2SAT 97
[2023-08-12 05:25] LABS: MEAN CORPUSCULAR HEMOGLOBIN 27.7 pg (27.0-33.0); MEAN CORPUSCULAR HGB CONC 31.4 g/dl (32.0-36.5); MEAN CORPUSCULAR VOLUME 88.2 fl (80.0-96.0); PLATELET COUNT, AUTOMATED 328 10^3/uL (150-450); RED BLOOD COUNT 3.97 10^6/uL (4.00-5.40); WHITE BLOOD COUNT 20.6 10^3/uL (4.0-10.0)
[2023-08-12 06:04] LABS: ALBUMIN 2.6 G/DL (3.2-5.2); ALKALINE PHOSPHATASE 197 U/L (46-116); ALT/SGPT 185 U/L (7.0-40); AST/SGOT 72 U/L (<34); BILIRUBIN,TOTAL 0.2 MG/DL (0.3-1.2); BLOOD UREA NITROGEN 18 MG/DL (9-23); CALCIUM LEVEL 7.9 MG/DL (8.5-10.1); CARBON DIOXIDE LEVEL 23 MMOL/L (20-31); CHLORIDE LEVEL 105 MMOL/L (98-107); CREATININE FOR GFR 0.48 MG/DL (0.55-1.30); GLOMERULAR FILTRATION RATE > 60.0 (>58); GLUCOSE, FASTING 116 MG/DL (60-100); SODIUM LEVEL 135 MMOL/L (136-145)
[2023-08-12] MEDS: MAGIC MOUTHWASH SUSPENSION BTL SS PRN (06:19)
[2023-08-12 08:00] VITALS: BP 120/76; TEMP 98.1; O2SAT 98
[2023-08-12 12:00] VITALS: BP 121/71; TEMP 97.8; O2SAT 97
[2023-08-12 15:30] VITALS: BP 111/63; TEMP 97.9; O2SAT 98
[2023-08-12 20:12] VITALS: BP 122/72; TEMP 97; O2SAT 98
[2023-08-13 06:02] VITALS: BP 102/69; TEMP 97.3; O2SAT 98
[2023-08-13 07:00] LABS: HEMATOCRIT 35.6 % (36.0-47.0); HEMOGLOBIN 11.2 g/dl (12.0-15.5); MEAN CORPUSCULAR HEMOGLOBIN 27.6 pg (27.0-33.0); MEAN CORPUSCULAR HGB CONC 31.5 g/dl (32.0-36.5); MEAN CORPUSCULAR VOLUME 87.7 fl (80.0-96.0); PLATELET COUNT, AUTOMATED 319 10^3/uL (150-450); RED BLOOD COUNT 4.06 10^6/uL (4.00-5.40); WHITE BLOOD COUNT 23.6 10^3/uL (4.0-10.0)
[2023-08-13 07:18] LABS: BLOOD UREA NITROGEN 20 MG/DL (9-23); CALCIUM LEVEL 7.3 MG/DL (8.5-10.1); CARBON DIOXIDE LEVEL 23 MMOL/L (20-31); CHLORIDE LEVEL 103 MMOL/L (98-107); CREATININE FOR GFR 0.53 MG/DL (0.55-1.30); GLOMERULAR FILTRATION RATE > 60.0 (>58); GLUCOSE, FASTING 114 MG/DL (60-100); MAGNESIUM LEVEL 2.2 MG/DL (1.8-2.4); POTASSIUM SERUM 4.9 MMOL/L (3.5-5.1); SODIUM LEVEL 134 MMOL/L (136-145)
[2023-08-13 07:34] LABS: LYMPHOCYTES 4 % (16-44); MONOCYTES 8 % (0-5); NEUTROPHILS 88 % (28-66); PLATELET ESTIMATE NORMAL (NORMAL)
[2023-08-13 07:35] LABS: ANISOCYTOSIS 1+; POLYCHROMASIA 1+
[2023-08-13] MEDS: PERCOCET 5MG/325MG TAB PO ONE (13:02)
[2023-08-13] MEDS: LIDOCAINE 5% (LIDODERM) PATCH TD SCH (13:03)
[2023-08-13 14:00] VITALS: BP 138/83; TEMP 97.7; O2SAT 98
[2023-08-13 20:00] VITALS: BP 113/64; TEMP 98.6; O2SAT 96
[2023-08-13 21:30] LABS: BASO # 0.1 10^3/uL (0.0-0.2); BASO % 0.4 % (0.0-1.0); EOS # 0.1 10^3/uL (0.0-0.5); EOS % 0.4 % (0.0-3.0); HEMATOCRIT 36.6 % (36.0-47.0); HEMOGLOBIN 11.7 g/dl (12.0-15.5); LYMPH # 1.3 10^3/uL (1.5-5.0); LYMPH % 5.1 % (24.0-44.0); MEAN CORPUSCULAR HEMOGLOBIN 27.9 pg (27.0-33.0); MEAN CORPUSCULAR VOLUME 87.4 fl (80.0-96.0); MONO # 1.1 10^3/uL (0.0-0.8); MONO % 4.5 % (2.0-8.0); NEUTROPHILS # 20.9 10^3/uL (1.5-8.5); NEUTROPHILS % 83.8 % (36.0-66.0); PLATELET COUNT, AUTOMATED 321 10^3/uL (150-450); RED BLOOD COUNT 4.19 10^6/uL (4.00-5.40); WHITE BLOOD COUNT 24.9 10^3/uL (4.0-10.0)
[2023-08-13 22:01] LABS: CK-MB VALUE MASS < 1.0 NG/ML (<3.6)
[2023-08-13 22:03] LABS: ALBUMIN 2.5 G/DL (3.2-5.2); ALKALINE PHOSPHATASE 164 U/L (46-116); ALT/SGPT 182 U/L (7.0-40); AST/SGOT 63 U/L (<34); BILIRUBIN,TOTAL 0.2 MG/DL (0.3-1.2); BLOOD UREA NITROGEN 19 MG/DL (9-23); CALCIUM LEVEL 7.2 MG/DL (8.5-10.1); CARBON DIOXIDE LEVEL 18 MMOL/L (20-31); CHLORIDE LEVEL 108 MMOL/L (98-107); CREATININE FOR GFR 0.68 MG/DL (0.55-1.30); GLOMERULAR FILTRATION RATE > 60.0 (>58); GLUCOSE, FASTING 114 MG/DL (60-100); SODIUM LEVEL 137 MMOL/L (136-145); TOTAL PROTEIN 5.8 G/DL (5.7-8.2)
[2023-08-13 22:07] LABS: CPK CREATINE PHOSPHOKINASE 19 U/L (34-145); MB/CK RELATIVE INDEX 5.26 (< OR =4)
[2023-08-13] MEDS ORDERED: ISOVUE-370 76% 100ML VIAL As Ordered ONE (22:15)
[2023-08-14 04:00] VITALS: BP 106/59; TEMP 98.5; O2SAT 97
[2023-08-14 06:49] LABS: HEMATOCRIT 37.3 % (36.0-47.0); HEMOGLOBIN 11.6 g/dl (12.0-15.5); MEAN CORPUSCULAR HGB CONC 31.1 g/dl (32.0-36.5); MEAN CORPUSCULAR VOLUME 89.9 fl (80.0-96.0); PLATELET COUNT, AUTOMATED 271 10^3/uL (150-450); RED BLOOD COUNT 4.15 10^6/uL (4.00-5.40); WHITE BLOOD COUNT 17.8 10^3/uL (4.0-10.0)
[2023-08-14 07:11] LABS: BLOOD UREA NITROGEN 16 MG/DL (9-23); CALCIUM LEVEL 7.3 MG/DL (8.5-10.1); CARBON DIOXIDE LEVEL 23 MMOL/L (20-31); CHLORIDE LEVEL 106 MMOL/L (98-107); CREATININE FOR GFR 0.55 MG/DL (0.55-1.30); GLOMERULAR FILTRATION RATE > 60.0 (>58); GLUCOSE, FASTING 80 MG/DL (60-100); MAGNESIUM LEVEL 2.1 MG/DL (1.8-2.4); POTASSIUM SERUM 4.5 MMOL/L (3.5-5.1); SODIUM LEVEL 137 MMOL/L (136-145)
[2023-08-14 08:06] LABS: ATYPICAL LYMPH 1 % (0-5); LYMPHOCYTES 5 % (16-44); MONOCYTES 3 % (0-5); MYELOCYTES 2 % (0-0); NEUTROPHILS 89 % (28-66); PLATELET ESTIMATE NORMAL (NORMAL)
[2023-08-14 08:07] LABS: ANISOCYTOSIS 2+; HELMET CELLS 1+; POLYCHROMASIA 1+
[2023-08-14 14:00] VITALS: BP 126/79; TEMP 97.8; O2SAT 98
[2023-08-15 06:00] VITALS: BP 100/58; TEMP 97.6; O2SAT 97
[2023-08-15 06:12] LABS: BASO # 0.1 10^3/uL (0.0-0.2); BASO % 0.3 % (0.0-1.0); EOS # 0.1 10^3/uL (0.0-0.5); EOS % 0.5 % (0.0-3.0); HEMATOCRIT 39.7 % (36.0-47.0); HEMOGLOBIN 12.6 g/dl (12.0-15.5); LYMPH # 0.6 10^3/uL (1.5-5.0); LYMPH % 3.3 % (24.0-44.0); MEAN CORPUSCULAR HEMOGLOBIN 27.4 pg (27.0-33.0); MEAN CORPUSCULAR HGB CONC 31.7 g/dl (32.0-36.5); MEAN CORPUSCULAR VOLUME 86.3 fl (80.0-96.0); MONO # 0.9 10^3/uL (0.0-0.8); MONO % 4.7 % (2.0-8.0); NEUTROPHILS % 86.8 % (36.0-66.0); PLATELET COUNT, AUTOMATED 241 10^3/uL (150-450); WHITE BLOOD COUNT 18.5 10^3/uL (4.0-10.0)
[2023-08-15 06:36] LABS: BLOOD UREA NITROGEN 13 MG/DL (9-23); CALCIUM LEVEL 7.5 MG/DL (8.5-10.1); CARBON DIOXIDE LEVEL 23 MMOL/L (20-31); CHLORIDE LEVEL 101 MMOL/L (98-107); CREATININE FOR GFR 0.46 MG/DL (0.55-1.30); GLOMERULAR FILTRATION RATE > 60.0 (>58); GLUCOSE, FASTING 96 MG/DL (60-100); POTASSIUM SERUM 4.5 MMOL/L (3.5-5.1); SODIUM LEVEL 132 MMOL/L (136-145)
[2023-08-15] MEDS: SENOKOT S TAB PO SCH (09:59)
[2023-08-15] MEDS: BISACODYL 10MG SUPP PR SCH (10:00)
[2023-08-15] MEDS: PROMETHAZINE 25MG/ML 1ML VIAL IV PRN (10:18)
[2023-08-15 13:53] LABS: APPEARANCE, URINE CLEAR (CLEAR); BACTERIA, URINE AUTO NEGATIVE (NEGATIVE); BILIRUBIN, URINE AUTO NEGATIVE (NEGATIVE); BLOOD, URINE BLOOD NEGATIVE (NEGATIVE); COLOR, URINE YELLOW (YELLOW); GLUCOSE, URINE (UA) AUTO NEGATIVE (NEGATIVE); KETONE, URINE AUTO NEGATIVE (NEGATIVE); LEUKOCYTE ESTERASE, URINE AUTO NEGATIVE (NEGATIVE); MUCUS, URINE SMALL (NEGATIVE); NITRITE, URINE AUTO NEGATIVE (NEGATIVE); PROTEIN, URINE AUTO 1+ mg/dL (NEGATIVE); RBC, URINE AUTO 6 /HPF (0-3); SPECIFIC GRAVITY URINE AUTO 1.027 (1.002-1.035); SQUAMOUS EPITHELIAL CELL UR AU 0 /HPF (0-6); UROBILINOGEN, URINE AUTO 0.2 mg/dL (0.0-2.0); WBC, URINE AUTO 2 /HPF (0-3)
[2023-08-15 14:00] VITALS: BP 141/90; TEMP 97.5; O2SAT 96
[2023-08-15 17:00] VITALS: BP 152/82; TEMP 97.5; O2SAT 100
[2023-08-18] MEDS: PERCOCET 5MG/325MG TAB PO PRN (09:47)
[2023-08-19] MEDS: PANTOPRAZOLE 40MG VIAL IV ONE (13:17)
[2023-08-19] MEDS: ONDANSETRON 4MG 2ML VIAL IV ONE (13:18)
[2023-08-20] MEDS ORDERED: BENZOCAINE 10% 9GM TUBE (ANBESOL) TOP PRN (11:30)
[2023-08-20] MEDS ORDERED: BENZOCAINE 20% GEL 9GM TUBE (ANBESOL MAX STRENGTH) TOP PRN (12:58)
[2023-08-20] MEDS ORDERED: BENZOCAINE 10% 9GM TUBE (ANBESOL) MT SCH (13:00)
[2023-08-20] MEDS: BENZOCAINE 20% GEL 9GM TUBE (ANBESOL MAX STRENGTH) MT SCH (14:53)
[2023-08-21] MEDS: MORPHINE 2 MG/ML 1ML VIAL IV PRN (07:40)
[2023-08-21] MEDS: PROMETHAZINE 25MG/ML 1ML VIAL IV ONE (15:24)
[2023-08-25] MEDS: MAALOX 30 ML SUSP *UDC PO PRN (06:13)
[2023-08-25] MEDS: MORPHINE 2 MG/ML 1ML VIAL IV ONE (11:00)
[2023-08-25] MEDS: PROMETHAZINE 25MG/ML 1ML VIAL IV ONE (11:00)
[2023-08-27] MEDS: LORazepam 2 MG/ML 1ML VIAL IV PRN (00:43)
[2023-08-27] MEDS: ACETAMINOPHEN *IV* 1,000 MG in IV 1 EA IV ONE (18:17)
[2023-08-27 19:15] VITALS: TEMP 99.6
[2023-08-29] MEDS: PANTOPRAZOLE 40MG VIAL IV SCH (09:21)
[2023-08-29] MEDS: LACOSAMIDE 10MG/ML 20ML VIAL (VIMPAT) IV SCH (09:21)
[2023-08-29] MEDS: levETIRAcetam INJection 500 MG in D5W MINI-BAG PLUS 100 ML IV SCH (09:21)
[2023-08-31 08:47] VITALS: TEMP 99.9
[2023-08-31] MEDS: ACETAMINOPHEN *IV* 1,000 MG in IV 1 EA IV ONE (09:36)
[2023-08-31 19:16] VITALS: O2SAT 95
[2023-09-05] MEDS: MORPHINE 10MG/0.5ML ORAL CONCENTRATE SOLUTION U/D SL PRN (08:52)
[2023-09-06] MEDS ORDERED: ATROPINE SULF 1MG/10ML SYRINGE IV PRN (05:35)
[2023-09-06] MEDS: SCOPOLAMINE 1MG TRANSDERMAL PATCH TOP ONE (06:29)
[2023-09-06] MEDS: ATROPINE SULFATE 1% OPHTH SOLN 2ML BTL SL PRN (06:38)
[2023-09-06] MEDS: MORPHINE 2 MG/ML 1ML VIAL IV PRN (12:52)
[2023-09-07] MEDS: LORazepam 1 MG TAB PO PRN (02:26)
[2023-09-07] MEDS: LORazepam 2 MG/ML 1ML VIAL IV STA (03:00)
== END 2023-09-07 06:48 | disposition expired | DRG 41 ==
LOC: M PCU 17:02 → M MS4PR 08-12 15:30 → M MSPAV 08-15 18:39
PROVIDERS: ADMIT General Practice; ATTEND General Practice
DX: C79.31 Secondary malignant neoplasm of brain (principal); R57.1 Hypovolemic shock; E43 Unspecified severe protein-calorie malnutrition; G93.6 Cerebral edema; R64 Cachexia; C79.51 Secondary malignant neoplasm of bone; E22.2 Syndrome of inappropriate secretion of antidiuretic hormone; I27.82 Chronic pulmonary embolism; C43.4 Malignant melanoma of scalp and neck; R56.9 Unspecified convulsions; R13.10 Dysphagia, unspecified; C43.70 Malignant melanoma of unspecified lower limb, including hip; C43.59 Malignant melanoma of other part of trunk; Z51.5 Encounter for palliative care; Z66 Do not resuscitate; F32.A Depression, unspecified; R74.01 Elevation of levels of liver transaminase levels; R62.7 Adult failure to thrive; K59.00 Constipation, unspecified; R07.9 Chest pain, unspecified; R91.8 Other nonspecific abnormal finding of lung field; Z79.01 Long term (current) use of anticoagulants; Z79.899 Other long term (current) drug therapy; Z88.8 Allergy status to other drugs, medicaments and biological substances; G89.3 Neoplasm related pain (acute) (chronic)

== ENCOUNTER 2023-08-15 11:15 | Outpatient (RCR) | payer SELFPAY ==
[2023-08-06] MEDS: ONDANSETRON 4MG ORAL DISINTEGRATING TAB PO ONE (10:06)
[~2023-08-15 11:15] MED LIST changes: -FLUO-290 PO; +FLUO10CA18 PO
== END 2023-09-02 ==
LOC: M ONCR 11:15
PROVIDERS: ATTEND General Practice
DX: Z51.0 Encounter for antineoplastic radiation therapy (principal); C79.31 Secondary malignant neoplasm of brain